=== PATIENT | male | born 1955 | race Two or more races ===

== ENCOUNTER 2021-10-26 15:17 | Observation (INO) ==
[2021-10-26 16:06] LABS: Appearance Urine Clear (Clear); Bilirubin Urine Negative (Negative); Blood Urine Negative (Negative); Color Urine Yellow; Glucose Urine UA Negative (Negative); Ketones Urine Negative (Negative); Leukocyte Esterase Urine Negative (Negative); Nitrite Urine Negative (Negative); Protein Urine Negative (Negative); Specific Gravity Urine 1.005 (1.000-1.030); Urobilinogen Urine Negative (Negative); pH Urine 6.5 (4.5-7.5)
--- NOTE | 2021-10-26 16:18 | Emergency Department Note ---
Impression & Plan Chest pain ADMIT ED Provider Note HPI: The patient is a 66-year-old male with history of coronary artery disease, status post multiple stents, presents the emergency department as a referral from [facility] (where he is staying [facility] for history of alcohol abuse) with a chief complaint of chest pain. Patient states over the past 5 to 6 days he has had multiple episodes of fairly significant substernal chest pain with exertion. He states this happens about 5-6 times a day. Patient does not currently have any symptoms at rest. He states that he has been at the inpatient rehabilitation [facility] since 21 October, states his last alcoholic beverage was on October 20. On arrival here to the ED the patient is noted to be tachycardic, hypertensive, he is saturating well on room air and he is otherwise in no acute distress on my initial evaluation. Patient also mentions that he does have an ulcer on his heel that he was concerned has not been healing appropriately. ROS: -Cardio: Chest -Skin: Heel ulcer *10 point review systems was conducted and is otherwise negative unless stated above *Outpatient medications and allergy history reviewed PE: General: Alert, NAD HEENT: Normocephalic, atraumatic Eyes: Extraocular eye movement is intact, no scleral erythema Pulmonary: Clear to auscultation bilaterally, no wheezing Cardio: Regular rate and rhythm GI: Abdomen is soft, nontender : No suprapubic tenderness MSK: No evidence of trauma or malformation of the extremities, no edema Skin: No evidence of rash, there is an ulceration to the posterior aspect of the left heel with clean base, no surrounding erythema, no crepitus in the surrounding tissue to palpation Neuro: Alert, no focal deficits Psychiatric: Cooperative monitoring analyst: - An order was placed for continuous cardiac monitoring - Patient was noted to be in sinus rhythm with rate of 95 EKG: Rate: 107 Rhythm: Sinus tachycardia Intervals: Within normal limits ST changes: No ST elevation Time: 1605 Medical Decision Making: Patient presented to the emergency department with a chief complaint of chest pain, states he has had these episodes over about the past 5 to 6 days, multiple times per day. Patient states they are exertional in nature. Patient states he also wanted an ulcer on his left heel evaluated, this does not appear to be actively infected on my exam, has a clean base, no surrounding crepitus to palpation, no surrounding erythema or purulence. EG shows sinus tachycardia without any ischemic changes, troponin is negative x1, CT angiography was obtained given the patient's hypertension and chest pain, this does not show any evidence of pulmonary embolism or aortic dissection. There is mention of possible esophagitis. X-ray imaging of the left heel does not show any evidence of subcutaneous gas formation or obvious osteomyelitis. On my reassessment here in the ED the patient is more comfortable appearing, giv en his history of coronary artery disease and multiple stents with complaint of chest pain I do feel that he would benefit from admission to the hospital for serial trending of troponin and possibly cardiology consultation. I discussed the case with the on-call hospitalist [facility], Dr. Sheffield, who admitted the patient to a telemetry bed for further management. Diagnosis: 1. Chest Pain, history of coronary artery disease 2. Hypertension 3. Ulcer to left heel, nonhealing (history of peripheral vascular disease) Disposition: Admission [facility] Spicer, Emergency Medicine Past Med/Surg History Social History Smoking Status: Current every day smoker Preferred Language: Greenlandic Feels Safe at Home: Yes Allergies Allergies Allergy/AdvReac Type Severity Reaction Status Date / Time hydroxyzine AdvReac Intermediate "DOESN'T Verified 10/26/21 18:51 WORK" PER PT. Home Meds Home Medications Medication Instructions Recorded Confirmed amlodipine 5 mg tablet 5 mg PO DAILY 10/26/21 10/26/21 aspirin 81 mg tablet,delayed 81 mg PO DAILY 10/26/21 10/26/21 release atorvastatin 80 mg tablet 80 mg PO HS 10/26/21 10/26/21 bacitracin 500 unit/gram topical 1 applic TOPICAL DAILY 10/26/21 10/26/21 ointment baclofen 5 mg tablet 5 mg PO TID 10/26/21 10/26/21 cilostazol 100 mg tablet 100 mg PO BID 10/26/21 10/26/21 clopidogrel 75 mg tablet (Plavix) 75 mg PO DAILY 10/26/21 10/26/21 cyanocobalamin (vitamin B-12) 1,000 mcg PO DAILY 10/26/21 10/26/21 1,000 mcg tablet (Vitamin B-12) doxycycline monohydrate 100 mg 100 mg PO BID 10/26/21 10/26/21 tablet duloxetine 30 mg capsule,delayed 30 mg PO DAILY 10/26/21 10/26/21 release sprinkle escitalopram oxalate 10 mg tablet 10 mg PO DAILY 10/26/21 10/26/21 (Lexapro) folic acid 1 mg tablet 1 mg PO DAILY 10/26/21 10/26/21 food supplemt, lactose-reduced 1 ea PO BID 10/26/21 10/26/21 (Ensure) gabapentin 800 mg tablet 800 mg PO TID 10/26/21 10/26/21 metformin 500 mg tablet 500 mg PO BID 10/26/21 10/26/21 multivitamin 1 tab PO DAILY 10/26/21 10/26/21 prazosin 1 mg capsule 1 mg PO HS 10/26/21 10/26/21 prazosin 2 mg capsule 2 mg PO HS 10/26/21 10/26/21 quetiapine 200 mg tablet (Seroquel) 200 mg PO HS 10/26/21 10/26/21 quetiapine 25 mg tablet (Seroquel) 25 mg PO BID 10/26/21 10/26/21 thiamine HCl (vitamin B1) 100 mg 100 mg PO DAILY 10/26/21 10/26/21 tablet Results & Data (ED) Vital Signs Vital Signs - 24 hr 10/26/21 15:24 10/26/21 15:31 10/26/21 18:10 Temperature 36.3 C L Temperature Source Temporal Artery Scan Pulse Rate 113 H 115 H Pulse Rate [Apical] 110 H 108 H Pulse Rhythm Regular Pulse Rhythm [Apical] Regular Pulse Strength [Apical] Normal Respiratory Rate 16 20 16 Respiratory Effort / Characteristics Non-Labored Spontaneous Non-Labored Spontaneous Respiratory Depth Normal Normal Respiratory Pattern Regular Regular Blood Pressure 166/79 H Blood Pressure [Right Arm] 178/89 H 178/82 H Blood Pressure Mean 108 Blood Pressure Mean [Right Arm] 118 114 Blood Pressure Position Sitting Blood Pressure Position [Right Arm] Lying Pulse Oximetry 97 95 94 Oxygen Delivery Method Room Air Room Air Room Air Oxygen Flow Rate 0 Sepsis Recent Fever Within 48 Hours No Sepsis New/Unexplained Change in Mental Status No Sepsis Action Taken by Nursing No Action Required 10/26/21 20:38 Temperature Temperature Source Pulse Rate Pulse Rate [Apical] 104 H Pulse Rhythm Pulse Rhythm [Apical] Pulse Strength [Apical] Respiratory Rate 18 Respiratory Effort / Characteristics Respiratory Depth Respiratory Pattern Blood Pressure Blood Pressure [Right Arm] Blood Pressure Mean Blood Pressure Mean [Right Arm] Blood Pressure Position Blood Pressure Position [Right Arm] Pulse Oximetry 95 Oxygen Delivery Method Room Air Oxygen Flow Rate Sepsis Recent Fever Within 48 Hours Sepsis New/Unexplained Change in Mental Status Sepsis Action Taken by Nursing Laboratory Data Result diagrams: 10/26/21 15:40 10/26/21 17:17 Lab Results 10/26/21 10/26/21 10/26/21 Range/Units 15:40 15:40 15:40 WBC 9.96 (4.8-10.8) K/ul RBC 4.62 L (4.63-6.08) M/uL Hgb 10.2 L (14.0-18.0) g/dl Hct 33.7 L (40.1-51.0) % MCV 72.9 L (80.0-100.0) fL MCH 22.1 L (25.0-34.0) pg MCHC 30.3 L (32.0-36.0) g/dL RDW Std Deviation 58.5 H (36.4-46.3) fL RDW Coeff of Mini 23.1 H (11.5-14.5) % Plt Count 392 (130-400) K/uL MPV 9.1 L (9.4-12.4) fL Immature Gran % (Auto) 0.7 % Neut % (Auto) 63.1 % Lymph % (Auto) 24.0 % [place] % (Auto) 7.9 % Eos % (Auto) 3.2 % Baso % (Auto) 1.1 % Reticulocyte % (Auto) (0.5-2.0) % Neut # (Auto) 6.28 (1.4-6.5) K/uL Lymph # (Auto) 2.39 (1.2-3.4) K/uL [place] # (Auto) 0.79 (0.24-0.82) K/uL Eos # (Auto) 0.32 (0-0.50) K/uL Baso # (Auto) 0.11 (0-0.2) K/uL Reticulocyte # (0.02-0.10) 10^6/uL Immature Gran # (Auto) 0.07 H (0.00-0.02) K/uL Anisocytosis Present Schistocytes Occasional PT 10.2 (9.0-12.0) Seconds INR 1.0 (0.9-1.1) APTT 24.3 (21.0-31.0) Seconds PTT Ratio 0.9 Sodium 135 L (136-145) mmol/L Potassium TNP Chloride 101 (98-107) mmol/L Carbon Dioxide 25 (21-32) mmol/L Anion Gap 9 (3-11) BUN 7 (6-23) mg/dl Creatinine 0.61 (0.6-1.4) mg/dl Est Cr Clr Drug Dosing 108.9 ml/min Est GFR ( Amer) 121.5 ml/min Est GFR (Non-Af Amer) 104.8 ml/min BUN/Creatinine Ratio 11.5 (10-20) Glucose 150 H (70-99(Fasting)) mg/dl Calcium 9.9 (8.5-10.1) mg/dl Magnesium 1.7 (1.7-2.4) mg/dl Iron (35-175) mcg/dl Transferrin (200-360) mg/dl Ferritin (8-388) ng/ml Total Bilirubin 0.6 (0.2-1.0) mg/dl AST TNP ALT 15 (7-52) U/L Alkaline Phosphatase 83 (34-104) U/L Troponin I High Sens (0-20) pg/ml Total Protein 8.0 (6.0-8.3) gm/dl Albumin 4.3 (3.4-5.0) gm/dl Globulin 3.7 (2.5-4.0) gm/dl Albumin/Globulin Ratio 1.2 (0.9-2) Vitamin B12 (180-914) pg/ml Folate (>5.38) ng/ml TSH (0.300-4.500) uIu/ml Urine Color Urine Appearance (Clear) Urine pH (4.5-7.5) Ur Specific [place] (1.000-1.030) Urine Protein (Negative) Urine Glucose (UA) (Negative) Urine Ketones (Negative) Urine Blood (Negative) Urine Nitrite (Negative) Urine Bilirubin (Negative) Urine Urobilinogen (Negative) Ur Leukocyte Esterase (Negative) SARS-CoV-2, RNA, NAAT (NEGATIVE) 10/26/21 10/26/21 10/26/21 Range/Units 15:40 15:40 15:40 WBC (4.8-10.8) K/ul RBC (4.63-6.08) M/uL Hgb (14.0-18.0) g/dl Hct (40.1-51.0) % MCV (80.0-100.0) fL MCH (25.0-34.0) pg MCHC (32.0-36.0) g/dL RDW Std Deviation (36.4-46.3) fL RDW Coeff of Mini (11.5-14.5) % Plt Count (130-400) K/uL MPV (9.4-12.4) fL Immature Gran % (Auto) % Neut % (Auto) % Lymph % (Auto) % [place] % (Auto) % Eos % (Auto) % Baso % (Auto) % Reticulocyte % (Auto) (0.5-2.0) % Neut # (Auto) (1.4-6.5) K/uL Lymph # (Auto) (1.2-3.4) K/uL [place] # (Auto) (0.24-0.82) K/uL Eos # (Auto) (0-0.50) K/uL Baso # (Auto) (0-0.2) K/uL Reticulocyte # (0.02-0.10) 10^6/uL Immature Gran # (Auto) (0.00-0.02) K/uL Anisocytosis Schistocytes PT (9.0-12.0) Seconds INR (0.9-1.1) APTT (21.0-31.0) Seconds PTT Ratio Sodium (136-145) mmol/L Potassium Chloride (98-107) mmol/L Carbon Dioxide (21-32) mmol/L Anion Gap (3-11) BUN (6-23) mg/dl Creatinine (0.6-1.4) mg/dl Est Cr Clr Drug Dosing ml/min Est GFR ( Amer) ml/min Est GFR (Non-Af Amer) ml/min BUN/Creatinine Ratio (10-20) Glucose (70-99(Fasting)) mg/dl Calcium (8.5-10.1) mg/dl Magnesium (1.7-2.4) mg/dl Iron (35-175) mcg/dl Transferrin (200-360) mg/dl Ferritin (8-388) ng/ml Total Bilirubin (0.2-1.0) mg/dl AST ALT (7-52) U/L Alkaline Phosphatase (34-104) U/L Troponin I High Sens 7.3 (0-20) pg/ml Total Protein (6.0-8.3) gm/dl Albumin (3.4-5.0) gm/dl Globulin (2.5-4.0) gm/dl Albumin/Globulin Ratio (0.9-2) Vitamin B12 (180-914) pg/ml Folate (>5.38) ng/ml TSH 1.080 (0.300-4.500) uIu/ml Urine Color Yellow Urine Appearance Clear (Clear) Urine pH 6.5 (4.5-7.5) Ur Specific [place] 1.005 (1.000-1.030) Urine Protein Negative (Negative) Urine Glucose (UA) Negative (Negative) Urine Ketones Negative (Negative) Urine Blood Negative (Negative) Urine Nitrite Negative (Negative) Urine Bilirubin Negative (Negative) Urine Urobilinogen Negative (Negative) Ur Leukocyte Esterase Negative (Negative) SARS-CoV-2, RNA, NAAT (NEGATIVE) 10/26/21 10/26/21 10/26/21 Range/Units 17:17 17:17 17:19 WBC (4.8-10.8) K/ul RBC (4.63-6.08) M/uL Hgb (14.0-18.0) g/dl Hct (40.1-51.0) % MCV (80.0-100.0) fL MCH (25.0-34.0) pg MCHC (32.0-36.0) g/dL RDW Std Deviation (36.4-46.3) fL RDW Coeff of Mini (11.5-14.5) % Plt Count (130-400) K/uL MPV (9.4-12.4) fL Immature Gran % (Auto) % Neut % (Auto) % Lymph % (Auto) % [place] % (Auto) % Eos % (Auto) % Baso % (Auto) % Reticulocyte % (Auto) (0.5-2.0) % Neut # (Auto) (1.4-6.5) K/uL Lymph # (Auto) (1.2-3.4) K/uL [place] # (Auto) (0.24-0.82) K/uL Eos # (Auto) (0-0.50) K/uL Baso # (Auto) (0-0.2) K/uL Reticulocyte # (0.02-0.10) 10^6/uL Immature Gran # (Auto) (0.00-0.02) K/uL Anisocytosis Schistocytes PT (9.0-12.0) Seconds INR (0.9-1.1) APTT (21.0-31.0) Seconds PTT Ratio Sodium (136-145) mmol/L Potassium 3.5 Chloride (98-107) mmol/L Carbon Dioxide (21-32) mmol/L Anion Gap (3-11) BUN (6-23) mg/dl Creatinine (0.6-1.4) mg/dl Est Cr Clr Drug Dosing ml/min Est GFR ( Amer) ml/min Est GFR (Non-Af Amer) ml/min BUN/Creatinine Ratio (10-20) Glucose (70-99(Fasting)) mg/dl Calcium (8.5-10.1) mg/dl Magnesium (1.7-2.4) mg/dl Iron 17 L (35-175) mcg/dl Transferrin 343 (200-360) mg/dl Ferritin 12.1 (8-388) ng/ml Total Bilirubin (0.2-1.0) mg/dl AST 15 ALT (7-52) U/L Alkaline Phosphatase (34-104) U/L Troponin I High Sens 9.4 (0-20) pg/ml Total Protein (6.0-8.3) gm/dl Albumin (3.4-5.0) gm/dl Globulin (2.5-4.0) gm/dl Albumin/Globulin Ratio (0.9-2) Vitamin B12 1015 H (180-914) pg/ml Folate > 22.30 (>5.38) ng/ml TSH (0.300-4.500) uIu/ml Urine Color Urine Appearance (Clear) Urine pH (4.5-7.5) Ur Specific [place] (1.000-1.030) Urine Protein (Negative) Urine Glucose (UA) (Negative) Urine Ketones (Negative) Urine Blood (Negative) Urine Nitrite (Negative) Urine Bilirubin (Negative) Urine Urobilinogen (Negative) Ur Leukocyte Esterase (Negative) SARS-CoV-2, RNA, NAAT (NEGATIVE) 10/26/21 10/26/21 10/26/21 Range/Units 19:24 22:24 22:24 WBC (4.8-10.8) K/ul RBC (4.63-6.08) M/uL Hgb (14.0-18.0) g/dl Hct (40.1-51.0) % MCV (80.0-100.0) fL MCH (25.0-34.0) pg MCHC (32.0-36.0) g/dL RDW Std Deviation (36.4-46.3) fL RDW Coeff of Mini (11.5-14.5) % Plt Count (130-400) K/uL MPV (9.4-12.4) fL Immature Gran % (Auto) % Neut % (Auto) % Lymph % (Auto) % [place] % (Auto) % Eos % (Auto) % Baso % (Auto) % Reticulocyte % (Auto) 1.0 (0.5-2.0) % Neut # (Auto) (1.4-6.5) K/uL Lymph # (Auto) (1.2-3.4) K/uL [place] # (Auto) (0.24-0.82) K/uL Eos # (Auto) (0-0.50) K/uL Baso # (Auto) (0-0.2) K/uL Reticulocyte # 0.05 (0.02-0.10) 10^6/uL Immature Gran # (Auto) (0.00-0.02) K/uL Anisocytosis Schistocytes PT (9.0-12.0) Seconds INR (0.9-1.1) APTT (21.0-31.0) Seconds PTT Ratio Sodium (136-145) mmol/L Potassium Chloride (98-107) mmol/L Carbon Dioxide (21-32) mmol/L Anion Gap (3-11) BUN (6-23) mg/dl Creatinine (0.6-1.4) mg/dl Est Cr Clr Drug Dosing ml/min Est GFR ( Amer) ml/min Est GFR (Non-Af Amer) ml/min BUN/Creatinine Ratio (10-20) Glucose (70-99(Fasting)) mg/dl Calcium (8.5-10.1) mg/dl Magnesium (1.7-2.4) mg/dl Iron (35-175) mcg/dl Transferrin (200-360) mg/dl Ferritin (8-388) ng/ml Total Bilirubin (0.2-1.0) mg/dl AST ALT (7-52) U/L Alkaline Phosphatase (34-104) U/L Troponin I High Sens 10.2 (0-20) pg/ml Total Protein (6.0-8.3) gm/dl Albumin (3.4-5.0) gm/dl Globulin (2.5-4.0) gm/dl Albumin/Globulin Ratio (0.9-2) Vitamin B12 (180-914) pg/ml Folate (>5.38) ng/ml TSH (0.300-4.500) uIu/ml Urine Color Urine Appearance (Clear) Urine pH (4.5-7.5) Ur Specific [place] (1.000-1.030) Urine Protein (Negative) Urine Glucose (UA) (Negative) Urine Ketones (Negative) Urine Blood (Negative) Urine Nitrite (Negative) Urine Bilirubin (Negative) Urine Urobilinogen (Negative) Ur Leukocyte Esterase (Negative) SARS-CoV-2, RNA, NAAT NEGATIVE (NEGATIVE) Administered Medications Discontinued Medications Clonidine HCl (Clonidine Hcl 0.1 Mg Tab) 0.1 mg PO NOW ONE Stop: 10/26/21 21:26 Last Admin: 10/26/21 21:50 Dose: 0.1 mg Documented by: [id number] Sodium Chloride (Nss 1000ml) 1,000 mls @ 999 mls/hr IV .Q1H1M ONE Stop: 10/26/21 17:19 Last Infusion: 10/26/21 19:10 Dose: 0 mls/hr Documented by: [id number] Admin: 10/26/21 18:03 Dose: 999 mls/hr Documented by: [id number] Magnesium Sulfate/Dextrose (Magnesium Sulfate / D5w) 1 gm in 100 mls @ 50 mls/hr IV ONE ONE Stop: 10/26/21 23:25 Last Admin: 10/26/21 21:50 Dose: 50 mls/hr Documented by: [id number] Ioversol (Optiray 320 125ml) 121 ml IV ONCE ONE Stop: 10/26/21 18:21 Last Admin: 10/26/21 18:22 Dose: 121 ml Documented by: [id number] Lorazepam (Lorazepam 2 Mg/1 Ml Vial) 1 mg IV NOW STA; Protocol Stop: 10/26/21 17:22 Last Admin: 10/26/21 18:06 Dose: 1 mg Documented by: [id number] Morphine Sulfate (Morphine Sulfate 4 Mg/Ml 1 Ml Carp\\Vial) 4 mg IV NOW STA Stop: 10/26/21 16:20 Last Admin: 10/26/21 18:03 Dose: 4 mg Documented by: [id number] Potassium Chloride (Potassium Chloride Crtab 20 Meq Tabcr) 40 meq PO NOW STA Stop: 10/26/21 21:27 Last Admin: 10/26/21 21:50 Dose: 40 meq Documented by: [id number] Imaging Data Radiologist's Impression: Chest X-Ray 10/26/21 15:29 TWO VIEW CHEST CLINICAL HISTORY: Atypical chest pain. FINDINGS: PA and lateral chest radiographs are correlated with chest CT performed the same day 10/26/2021. The heart is enlarged. The pulmonary vasculature is noncongested. The coronary artery stent is suspected. A telectasis is noted at the lung bases. Right middle lobe atelectasis appears increased from today's CT scan. No pleural effusion or pneumothorax is seen. The skeletal structures are osteopenic. There are healed bilateral rib fractures. IMPRESSION: 1. Cardiomegaly without radiographic evidence of congestive failure. 2. Atelectasis is noted at the lung bases. Right middle lobe atelectasis appears increased from today's earlier CT scan. ACT 112: Negative or not required by law. Electronically signed by: Shayne Levin M.D. 10/26/2021 7:42 PM Foot X-Ray 10/26/21 15:29 RIGHT FOOT 3 VIEWS CLINICAL HISTORY: Right foot ulceration. FINDINGS: 3 views of the right foot are obtained. No prior studies are available for comparison at the time of dictation. The skeletal structures are osteopenic. No fracture is seen. There is no bony erosion or periostitis. Mild osteoarthritic change is seen at the first metatarsophalangeal joint. There is mild subluxation at the fourth proximal interphalangeal joint. Soft tissue edema overlies the heel. Ulceration is suggested dorsal to the calcaneus. No soft ti ssue gas is seen. An ankle monitor is in place. IMPRESSION: 1. No acute bony abnormality is identified. 2. Soft tissue edema overlies the heel and a cutaneous ulceration is suggested dorsal to the calcaneus. Electronically signed by: Shayne Levin M.D. 10/26/2021 7:58 PM Chest CTA 10/26/21 16:19 CT ANGIOGRAM OF THE CHEST CLINICAL HISTORY: Atypical chest pain. COMPARISON STUDY: No priors. TECHNIQUE: Following the IV administration of 121 cc of Optiray 320, CT angiogram of the chest was performed from the upper abdomen to the thoracic inlet utilizing the pulmonary embolus protocol. Images are reviewed in the axial, sagittal, and coronal planes. 3-D MIPS images are created and assessed. IV contrast was administered without complication. A dose lowering technique was utilized adhering to the principles of ALARA. The examination is degraded by motion artifact. CT DOSE: 423.06 mGy.cm FINDINGS: Thyroid: Imaged portions of the thyroid gland are normal in size and attenuation. Thoracic aorta: There is atherosclerotic calcification of the thoracic aorta. There is mild and minimal dilatation of the ascending thoracic aorta which measures up to 4.0 cm in diameter. The remainder of the thoracic aorta is normal in caliber, and the arch demonstrates standard 3-vessel anatomy. No dissection is seen. Pulmonary vasculature: The pulmonary trunk is normal in caliber. There are no filling defects identified in main, lobar, or proximal segmental pulmonary branches to suggest pulmonary embolus. Evaluation of the segmental and subsegmental vessels is significantly degraded by motion artifact, particularly in the lower lobes. Heart: The heart is enlarged and noting trace pericardial effusion. The coronary arteries are densely calcified. Lungs and pleural spaces: Evaluation of the lung parenchyma is compromised by motion artifact. Secretions are noted in the trachea. Dependent atelectasis is seen at the lung bases. There is no airspace consolidation typical for pneumonia or pleural effusion. Mediastinum: Esophageal wall appears diffusely thickened. There is no mediastinal lymphadenopathy. Leah: Clear. Axillae: There is no axillary lymphadenopathy. Upper abdomen: There is a small hiatal hernia. Partially visualized upper abdominal viscera is otherwise within normal limits. Skeletal structures: The skeletal structures are osteopenic. Spondylotic changes noted in the spine. No lytic or blastic bony lesions are seen. There are chronic/healed bilateral rib fractures. IMPRESSION: 1. Motion compromised examination. 2. There is no evidence of central pulmonary embolus in the main, lobar, or proximal segmental pulmonary arteries. The segmental and subsegmental vessels are not well evaluated. 3. Cardiomegaly. 4. There is no airspace consolidation or pleural effusion. 5. Esophageal wall appears diffusely thickened. Correlate clinically for evidence of esophagitis. This could be further assessed with endoscopy if clinically warranted. 6. There is mild aneurysmal dilatation of the ascending thoracic aorta which measures up to 4.0 cm in diameter. 7. Additional findings as above. ACT 112: Negative or not required by law. Electronically signed by: Shayne Levin M.D. 10/26/2021 6:59 PM Discharge Plan Visit Data Chief Complaint: Chest Pain Stated Complaint: RT HEAL ULCERATION ED Provider: Collin Spicer Discharge Problem: Chest pain Patient Disposition: Admitted As Inpatient Discharge Instructions Interventions: ED Discharge Assessment Last Done: 10/26/21 22:51 Discharge Problem: Chest pain Qualifiers: Chest pain type: unspecified Qualified Code(s): R07.9 - Chest pain, unspecified
[2021-10-26] MEDS ORDERED: MoRPHine SULFATE 4 MG/ML 1 ML CARP\\VIAL IV STA (16:19)
[2021-10-26] MEDS ORDERED: SODIUM CHLORIDE 0.9% 1000ML 1,000 ML IV ONE (16:19)
[2021-10-26 16:20] LABS: Partial Thromboplastin Ratio 0.9; Partial Thromboplastin Time 24.3 Seconds (21.0-31.0); Prothrombin Time 10.2 Seconds (9.0-12.0)
[2021-10-26 16:22] LABS: Basophils # (auto) 0.11 K/uL (0-0.2); Basophils % (auto) 1.1 %; Eosinophils # (auto) 0.32 K/uL (0-0.50); Eosinophils % (auto) 3.2 %; Hematocrit (blood only) 33.7 % (40.1-51.0); Hemoglobin 10.2 g/dl (14.0-18.0); Immature Granulocytes # (auto) 0.07 K/uL (0.00-0.02); Immature Granulocytes % (auto) 0.7 %; Lymphocytes # (auto) 2.39 K/uL (1.2-3.4); Mean Corpuscular Hemoglobin 22.1 pg (25.0-34.0); Mean Corpuscular Hgb Conc 30.3 g/dL (32.0-36.0); Mean Corpuscular Volume 72.9 fL (80.0-100.0); Mean Platelet Volume 9.1 fL (9.4-12.4); Monocytes # (auto) 0.79 K/uL (0.24-0.82); Monocytes % (auto) 7.9 %; Neutrophils # (auto) 6.28 K/uL (1.4-6.5); Neutrophils % (auto) 63.1 %; Platelet Count 392 K/uL (130-400); RDW Coefficient of Variation 23.1 % (11.5-14.5); RDW Standard Deviation 58.5 fL (36.4-46.3); Red Blood Count 4.62 M/uL (4.63-6.08); White Blood Count 9.96 K/ul (4.8-10.8)
[2021-10-26 16:53] LABS: Alanine Aminotransferase 15 U/L (7-52); Albumin Globulin Ratio 1.2 (0.9-2); Albumin Level 4.3 gm/dl (3.4-5.0); Alkaline Phosphatase 83 U/L (34-104); Anion Gap 9 (3-11); BUN Creatinine Ratio 11.5 (10-20); Bilirubin,Total 0.6 mg/dl (0.2-1.0); Blood Urea Nitrogen 7 mg/dl (6-23); Calcium 9.9 mg/dl (8.5-10.1); Carbon Dioxide 25 mmol/L (21-32); Chloride 101 mmol/L (98-107); Creatinine Clr Calc Pharmacy 108.9 ml/min; Est GFR (African American) 121.5 ml/min; Est GFR (Non-African American) 104.8 ml/min; Globulin 3.7 gm/dl (2.5-4.0); Glucose 150 mg/dl (70-99(Fasting)); Magnesium 1.7 mg/dl (1.7-2.4); Sodium 135 mmol/L (136-145)
[2021-10-26 17:13] LABS: Schistocytes Occasional
[2021-10-26 17:14] LABS: Anisocytosis Present
[2021-10-26] MEDS ORDERED: LORazepam 2 MG/1 ML VIAL IV STA (17:21)
[2021-10-26 18:11] LABS: Potassium 3.5 mmol/L (3.5-5.1)
[2021-10-26] MEDS ORDERED: OPTIRAY 320 125ml IV ONE (18:20)
--- NOTE | 2021-10-26 19:01 | CT Scan Report ---
CT ANGIOGRAM OF THE CHEST CLINICAL HISTORY: Atypical chest pain. COMPARISON STUDY: No priors. TECHNIQUE: Following the IV administration of 121 cc of Optiray 320, CT angiogram of the chest was pe rformed from the upper abdomen to the thoracic inlet utilizing the pulmonary embolus protocol. Images are reviewed in the axial, sagittal, and coronal planes. 3-D MIPS images are created and assessed. I V contrast was administered without complication. A dose lowering technique was utilized adhering to the principles of ALARA. The examination is degraded by motion artifact. CT DOSE: 423.06 mGy.cm FINDINGS: Thyroid: Imaged portions of the thyroid gland are normal in size and attenuation. Thoracic aorta: There is atherosclerotic calcification of the thoracic aorta. There is mild and minim al dilatation of the ascending thoracic aorta which measures up to 4.0 cm in diameter. The remainder of the thoracic aorta is normal in caliber, and the arch demonstrates standard 3-vessel anatomy. No d issection is seen. Pulmonary vasculature: The pulmonary trunk is normal in caliber. There are no filling defects identif ied in main, lobar, or proximal segmental pulmonary branches to suggest pulmonary embolus. Evaluation of the segmental and subsegmental vessels is significantly degraded by motion artifact, particularly in the lower lobes. Heart: The heart is enlarged and noting trace pericardial effusion. The coronary arteries are densely calcified. Lungs and pleural spaces: Evaluation of the lung parenchyma is compromised by motion artifact. Secret ions are noted in the trachea. Dependent atelectasis is seen at the lung bases. There is no airspace consolidation typical for pneumonia or pleural effusion. Mediastinum: Esophageal wall appears diffusely thickened. There is no mediastinal lymphadenopathy. Leah: Clear. Axillae: There is no axillary lymphadenopathy. Upper abdomen: There is a small hiatal hernia. Partially visualized upper abdominal viscera is otherw ise within normal limits. Skeletal structures: The skeletal structures are osteopenic. Spondylotic changes noted in the spine. No lytic or blastic bony lesions are seen. There are chronic/healed bilateral rib fractures. IMPRESSION: 1. Motion compromised examination. 2. There is no evidence of central pulmonary embolus in the main, lobar, or proximal segmental pulmon carlitos arteries. The segmental and subsegmental vessels are not well evaluated. 3. Cardiomegaly. 4. There is no airspace consolidation or pleural effusion. 5. Esophageal wall appears diffusely thickened. Correlate clinically for evidence of esophagitis. Thi s could be further assessed with endoscopy if clinically warranted. 6. There is mild aneurysmal dilatation of the ascending thoracic aorta which measures up to 4.0 cm in diameter. 7. Additional findings as above. ACT 112: Negative or not required by law. Electronically signed by: Shayne Levin M.D. 10/26/2021 6:59 PM
--- NOTE | 2021-10-26 19:45 | XRay Report ---
TWO VIEW CHEST CLINICAL HISTORY: Atypical chest pain. FINDINGS: PA and lateral chest radiographs are correlated with chest CT performed the same day 022. The heart is enlarged. The pulmonary vasculature is noncongested. The coronary artery stent is suspected. Atelectasis is noted at the lung bases. Right middle lobe atelectasis appears increased fr om today's CT scan. No pleural effusion or pneumothorax is seen. The skeletal structures are osteopen ic. There are healed bilateral rib fractures. IMPRESSION: 1. Cardiomegaly without radiographic evidence of congestive failure. 2. Atelectasis is noted at the lung bases. Right middle lobe atelectasis appears increased from today 's earlier CT scan. ACT 112: Negative or not required by law. Electronically signed by: Shayne Levin M.D. 10/26/2021 7:42 PM
--- NOTE | 2021-10-26 19:59 | XRay Report ---
RIGHT FOOT 3 VIEWS CLINICAL HISTORY: Right foot ulceration. FINDINGS: 3 views of the right foot are obtained. No prior studies are available for comparison at th e time of dictation. The skeletal structures are osteopenic. No fracture is seen. There is no bony er osion or periostitis. Mild osteoarthritic change is seen at the first metatarsophalangeal joint. Ther e is mild subluxation at the fourth proximal interphalangeal joint. Soft tissue edema overlies the he el. Ulceration is suggested dorsal to the calcaneus. No soft tissue gas is seen. An ankle monitor is in place. IMPRESSION: 1. No acute bony abnormality is identified. 2. Soft tissue edema overlies the heel and a cutaneous ulceration is suggested dorsal to the calcaneu s. Electronically signed by: Shayne Levin M.D. 10/26/2021 7:58 PM
[2021-10-26] MEDS ORDERED: cloNIDine HCL 0.1 MG TAB PO ONE (21:25)
[2021-10-26] MEDS ORDERED: POTASSIUM CHLORIDE CRTAB 20 MEQ TABCR PO STA (21:26)
[2021-10-26] MEDS ORDERED: MAGNESIUM SULFATE / D5W 1 GM/100 ML BAG IV ONE (21:26)
--- NOTE | 2021-10-26 22:24 | History & Physical Report ---
Date of Service October 26, 2021 Assessment & Plan (1) Chest pain: Plan: Possibly from uncontrolled hypertension secondary to alcohol withdrawal Rule out ACS, hx CAD status post stent (recent stent placed 2014) Right heel wound of 2 months duration Improving on recent doxycycline Rx, no sepsis for now hx PVD Rule out osteomyelitis hyperlipidemia, on statin Rx DM2 on oral medications, unknown baseline control mood disorder, at baseline Anemia, unknown duration, patient unaware of prior diagnosis, FOBT negative ongoing tobacco/alcohol abuse OBS PCU Titrate home BP meds Add beta-juani to regimen if still uncontrolled (Patient recalls being on beta-blockers in the past but does not recall why it was stopped.) ALISON S, DT precautions Aspirin and statin for secondary CAD prevention Follow troponin TTE, Cardiology consult Re: Chest pain, history CAD N.p.o. after midnight until patient seen by Cardiology in anticipation of procedure Continue doxycycline for right heel wound Follow official CT right foot result, may need MRI to definitively rule out oste omyelitis May benefit from podiatry evaluation Anemia work-up, transfuse PRBC if hemoglobin less than 8 and for symptomatic anemia Basal insulin adjusted for n.p.o. status, ISS BG goal 1 10-1 40, check hemoglobin A1c Retrieve recent records/labs from PCP's office. Nicotine patch. DVT prophylaxis. Lovenox subcu Full code Text document was generated using [employer] voice recognition software. It may contain grammatical or spelling errors. Kindly contact undersigned for clarification of any documentation item in question. History of Present Illness Chief Complaint: Chest pain, Left foot wound issue Primary Care Provider: Dr. Narvaez of [place], [place] History obtained from patient and records. Medical history significant for CAD status post stent (recent stent placed 2014), PVD, hypertension, hyperlipidemia, DM2 on oral medications, mood disorder, chronic left heel wound on doxycycline Rx, ongoing tobacco/alcohol abuse. Patient is a resident of [place], [place] who arrived at the the local [facility] rehab facility for voluntary alcohol rehab/detox 6 days ago. Last drink was 6 days ago. 2 months ago, patient noted a wound on his right heel. Patient started on Doxycycline course last week by family doctor before leaving [place]. X-ray recommended as per patient to make sure infection has not spread to the bone. Some improvement of right heel wound with doxycycline prescription. On and off left-sided chest discomfort going to the jaw and arm the last 3 years, lasting minutes to hours. Somewhat worsened on exertion. Patient has not had a follow-up with a director instrumentation in the last 3 years. Last 3 days, patient noted worsening of chest discomfort symptoms with some shortness of breath, diaphoresis. Patient compliant with home medications. Blood pressure readings different every time depending on what he eats as per patient. Patient denies headache, belly pain, black/bloody stools. Patient sent to the ER for evaluation of chest pain and right heel wound. Patient currently comfortable at the ER. 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 Home Medications Medication Instructions Recorded Confirmed Type amlodipine 5 mg tablet 5 mg PO DAILY 10/26/21 10/26/21 History aspirin 81 mg tablet,delayed 81 mg PO DAILY 10/26/21 10/26/21 History release atorvastatin 80 mg tablet 80 mg PO HS 10/26/21 10/26/21 History bacitracin 500 unit/gram topical 1 applic TOPICAL DAILY 10/26/21 10/26/21 History ointment baclofen 5 mg tablet 5 mg PO TID 10/26/21 10/26/21 History cilostazol 100 mg tablet 100 mg PO BID 10/26/21 10/26/21 History clopidogrel 75 mg tablet (Plavix) 75 mg PO DAILY 10/26/21 10/26/21 History cyanocobalamin (vitamin B-12) 1,000 mcg PO DAILY 10/26/21 10/26/21 History 1,000 mcg tablet (Vitamin B-12) doxycycline monohydrate 100 mg 100 mg PO BID 10/26/21 10/26/21 History tablet duloxetine 30 mg capsule,delayed 30 mg PO DAILY 10/26/21 10/26/21 History release sprinkle escitalopram oxalate 10 mg tablet 10 mg PO DAILY 10/26/21 10/26/21 History (Lexapro) folic acid 1 mg tablet 1 mg PO DAILY 10/26/21 10/26/21 History food supplemt, lactose-reduced 1 ea PO BID 10/26/21 10/26/21 History (Ensure) gabapentin 800 mg tablet 800 mg PO TID 10/26/21 10/26/21 History metformin 500 mg tablet 500 mg PO BID 10/26/21 10/26/21 History multivitamin 1 tab PO DAILY 10/26/21 10/26/21 History prazosin 1 mg capsule 1 mg PO HS 10/26/21 10/26/21 History prazosin 2 mg capsule 2 mg PO HS 10/26/21 10/26/21 History quetiapine 200 mg tablet (Seroquel) 200 mg PO HS 10/26/21 10/26/21 History quetiapine 25 mg tablet (Seroquel) 25 mg PO BID 10/26/21 10/26/21 History thiamine HCl (vitamin B1) 100 mg 100 mg PO DAILY 10/26/21 10/26/21 History tablet Past Med/Surg History Social History Smoking Status: Current some day smoker Second Hand Exposure: No; Do You Dip or Chew Tobacco: No; Tobacco Cessation Education Requested by Patient: No Hx Alcohol Use: Yes Alcohol type: beer Hx Substance Use: No Preferred Language: Monegasque Communication Ability: Effective 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 Beliefs That Will Affect Care: None Current Living Situation: Alone Current Living Situation Comment: Pt is from [place] and is currently at [facility] Other Information That Helps Us Care for You: No Feels Safe at Home: Yes Safety Concerns: Feels Safe At This Time Assistive Devices: Cane, Glasses and Hearing Aid - Left Review of Systems Review of Systems: As per HPI, all other systems reviewed and negative Physical Exam Physical Exam: GENERAL: Comfortable, pleasant, no respiratory distress SKIN: Pallor , warm HEENT: Alopecia, pale palpebral conjunctivae, no ptosis, mosit buccal mucosa NECK : Supple, no tenderness CHEST : CTA, no tenderness HEART : Tachycardic, no obvious murmurs ABDOMEN: Some distention, nontender RECTAL : Intact sphincter, yellow stool (FOBT negative) EXTREMITIES : Ulcerated wound, right heel, no LE swelling/tenderness, no other conspicuous deformities noted NEUROLOGIC : Coherent, no facial asymmetry, no other gross focality Results & Data Results & Data ([facility]) Vital Signs (Past 12 Hours) Vital Signs Temp Pulse Pulse Resp BP BP Pulse Ox 10/26/21 20:38 104 H 18 95 10/26/21 18:10 108 H 16 178/82 H 94 07/11/22 15:31 115 H 110 H 20 178/89 H 95 10/26/21 15:24 36.3 C L 113 H 16 166/79 H 97 Laboratory Results Laboratory Results WBC 9.96 K/ul (4.8-10.8) 10/26/21 15:40 RBC 4.62 M/uL (4.63-6.08) L 10/26/21 15:40 Hgb 10.2 g/dl (14.0-18.0) L 10/26/21 15:40 Hct 33.7 % (40.1-51.0) L 10/26/21 15:40 MCV 72.9 fL (80.0-100.0) L 10/26/21 15:40 MCH 22.1 pg (25.0-34.0) L 10/26/21 15:40 MCHC 30.3 g/dL (32.0-36.0) L 10/26/21 15:40 RDW Std Deviation 58.5 fL (36.4-46.3) H 10/26/21 15:40 RDW Coeff of Mini 23.1 % (11.5-14.5) H 10/26/21 15:40 Plt Count 392 K/uL (130-400) 10/26/21 15:40 MPV 9.1 fL (9.4-12.4) L 10/26/21 15:40 Immature Gran % (Auto) 0.7 % 10/26/21 15:40 Neut % (Auto) 63.1 % 10/26/21 15:40 Lymph % (Auto) 24.0 % 10/26/21 15:40 [place] % (Auto) 7.9 % 10/26/21 15:40 Eos % (Auto) 3.2 % 10/26/21 15:40 Baso % (Auto) 1.1 % 10/26/21 15:40 Neut # (Auto) 6.28 K/uL (1.4-6.5) 10/26/21 15:40 Lymph # (Auto) 2.39 K/uL (1.2-3.4) 10/26/21 15:40 [place] # (Auto) 0.79 K/uL (0.24-0.82) 10/26/21 15:40 Eos # (Auto) 0.32 K/uL (0-0.50) 10/26/21 15:40 Baso # (Auto) 0.11 K/uL (0-0.2) 10/26/21 15:40 Immature Gran # (Auto) 0.07 K/uL (0.00-0.02) H 10/26/21 15:40 Anisocytosis Present 10/26/21 15:40 Schistocytes Occasional 10/26/21 15:40 PT 10.2 Seconds (9.0-12.0) 10/26/21 15:40 INR 1.0 (0.9-1.1) 10/26/21 15:40 APTT 24.3 Seconds (21.0-31.0) 10/26/21 15:40 PTT Ratio 0.9 10/26/21 15:40 Sodium 135 mmol/L (136-145) L 10/26/21 15:40 Potassium 3.5 mmol/L (3.5-5.1) 10/26/21 17:17 Chloride 101 mmol/L (98-107) 10/26/21 15:40 Carbon Dioxide 25 mmol/L (21-32) 10/26/21 15:40 Anion Gap 9 (3-11) 10/26/21 15:40 BUN 7 mg/dl (6-23) 10/26/21 15:40 Creatinine 0.61 mg/dl (0.6-1.4) 10/26/21 15:40 Est Cr Clr Drug Dosing 108.9 ml/min 10/26/21 15:40 Est GFR ( Amer) 121.5 ml/min 10/26/21 15:40 Est GFR (Non-Af Amer) 104.8 ml/min 10/26/21 15:40 BUN/Creatinine Ratio 11.5 (10-20) 10/26/21 15:40 Glucose 150 mg/dl (70-99(Fasting)) H 10/26/21 15:40 Calcium 9.9 mg/dl (8.5-10.1) 10/26/21 15:40 Magnesium 1.7 mg/dl (1.7-2.4) 10/26/21 15:40 Total Bilirubin 0.6 mg/dl (0.2-1.0) 10/26/21 15:40 AST 15 U/L (13-39) 10/26/21 17:17 ALT 15 U/L (7-52) 10/26/21 15:40 Alkaline Phosphatase 83 U/L (34-104) 10/26/21 15:40 Troponin I High Sens 7.3 pg/ml (0-20) 10/26/21 15:40 Total Protein 8.0 gm/dl (6.0-8.3) 10/26/21 15:40 Albumin 4.3 gm/dl (3.4-5.0) 10/26/21 15:40 Globulin 3.7 gm/dl (2.5-4.0) 10/26/21 15:40 Albumin/Globulin Ratio 1.2 (0.9-2) 10/26/21 15:40 TSH 1.080 uIu/ml (0.300-4.500) 10/26/21 15:40 Urine Color Yellow 10/26/21 15:40 Urine Appearance Clear (Clear) 10/26/21 15:40 Urine pH 6.5 (4.5-7.5) 10/26/21 15:40 Ur Specific [place] 1.005 (1.000-1.030) 10/26/21 15:40 Urine Protein Negative (Negative) 10/26/21 15:40 Urine Glucose (UA) Negative (Negative) 10/26/21 15:40 Urine Ketones Negative (Negative) 10/26/21 15:40 Urine Blood Negative (Negative) 10/26/21 15:40 Urine Nitrite Negative (Negative) 10/26/21 15:40 Urine Bilirubin Negative (Negative) 10/26/21 15:40 Urine Urobilinogen Negative (Negative) 10/26/21 15:40 Ur Leukocyte Esterase Negative (Negative) 10/26/21 15:40 SARS-CoV-2, RNA, NAAT NEGATIVE (NEGATIVE) 10/26/21 19:24 Impressions Chest X-Ray 10/26/21 15:29 TWO VIEW CHEST CLINICAL HISTORY: Atypical chest pain. FINDINGS: PA and lateral chest radiographs are correlated with chest CT performed the same day 10/26/2021. The heart is enlarged. The pulmonary vasculature is noncongested. The coronary artery stent is suspected. Atelectasis is noted at the lung bases. Right middle lobe atelectasis appears increased from today's CT scan. No pleural effusion or pneumothorax is seen. The skeletal structures are osteopenic. There are healed bilateral rib fractures. IMPRESSION: 1. Cardiomegaly without radiographic evidence of congestive failure. 2. Atelectasis is noted at the lung bases. Right middle lobe atelectasis appears increased from today's earlier CT scan. ACT 112: Negative or not required by law. Electronically signed by: Shayne Levin M.D. 10/26/2021 7:42 PM Foot X-Ray 10/26/21 15:29 RIGHT FOOT 3 VIEWS CLINICAL HISTORY: Right foot ulceration. FINDINGS: 3 views of the right foot are obtained. No prior studies are available for comparison at the time of dictation. The skeletal structures are osteopenic. No fracture is seen. There is no bony erosion or periostitis. Mild osteoarthritic change is seen at the first metatarsophalangeal joint. There is mild subluxation at the fourth proximal interphalangeal joint. Soft tissue edema overlies the heel. Ulceration is suggested dorsal to the calcaneus. No soft tissue gas is seen. An ankle monitor is in place. IMPRESSION: 1. No acute bony abnormality is identified. 2. Soft tissue edema overlies the heel and a cutaneous ulceration is suggested dorsal to the calcaneus. Electronically signed by: Shayne Levin M.D. 10/26/2021 7:58 PM Chest CTA 10/26/21 16:19 CT ANGIOGRAM OF THE CHEST CLINICAL HISTORY: Atypical chest pain. COMPARISON STUDY: No priors. TECHNIQUE: Following the IV administration of 121 cc of Optiray 320, CT angiogram of the chest was performed from the upper abdomen to the thoracic inlet utilizing the pulmonary embolus protocol. Images are reviewed in the ax ial, sagittal, and coronal planes. 3-D MIPS images are created and assessed. IV contrast was administered without complication. A dose lowering technique was utilized adhering to the principles of ALARA. The examination is degraded by motion artifact. CT DOSE: 423.06 mGy.cm FINDINGS: Thyroid: Imaged portions of the thyroid gland are normal in size and attenuation. Thoracic aorta: There is atherosclerotic calcification of the thoracic aorta. There is mild and minimal dilatation of the ascending thoracic aorta which measures up to 4.0 cm in diameter. The remainder of the thoracic aorta is normal in caliber, and the arch demonstrates standard 3-vessel anatomy. No dissection is seen. Pulmonary vasculature: The pulmonary trunk is normal in caliber. There are no filling defects identified in main, lobar, or proximal segmental pulmonary branches to suggest pulmonary embolus. Evaluation of the segmental and subsegmental vessels is significantly degraded by motion artifact, particularly in the lower lobes. Heart: The heart is enlarged and noting trace pericardial effusion. The coronary arteries are densely calcified. Lungs and pleural spaces: Evaluation of the lung parenchyma is compromised by motion artifact. Secretions are noted in the trachea. Dependent atelectasis is seen at the lung bases. There is no airspace consolidation typical for pneumonia or pleural effusion. Mediastinum: Esophageal wall appears diffusely thickened. There is no mediastinal lymphadenopathy. Leah: Clear. Axillae: There is no axillary lymphadenopathy. Upper abdomen: There is a small hiatal hernia. Partially visualized upper abdominal viscera is otherwise within normal limits. Skeletal structures: The skeletal structures are osteopenic. Spondylotic changes noted in the spine. No lytic or blastic bony lesions are seen. There are chronic/healed bilateral rib fractures. IMPRESSION: 1. Motion compromised examination. 2. There is no evidence of central pulmonary embolus in the main, lobar, or proximal segmental pulmonary arteries. The segmental and subsegmental vessels are not well evaluated. 3. Cardiomegaly. 4. There is no airspace consolidation or pleural effusion. 5. Esophageal wall appears diffusely thickened. Correlate clinically for evidence of esophagitis. This could be further assessed with endoscopy if clinically warranted. 6. There is mild aneurysmal dilatation of the ascending thoracic aorta which measures up to 4.0 cm in diameter. 7. Additional findings as above. ACT 112: Negative or not required by law. Electronically signed by: Shayne Levin M.D. 10/26/2021 6:59 PM Diagnostic Findings EKG as per my interpretation : Rate 105, sinus tachycardia, LAD, LAFB, no ischemia CT right foot initial read: Nonspecific subcutaneous edema of the sole of the foot without definitive organized fluid collection. Please note evaluation for abscess is limited without IVcontrast. R LE arterial Dopplers initial read: Marked plaque with poststenoticwaveforms of the distal right common femoral arteryconsistent with significant upstreamstenosis. 75-99%stenosis of the right superficial femoral arterybased on velocity criteria. The dorsalis pedis arteryis patent (1) Chest pain Chest pain type: unspecified Qualified Code(s): R07.9 - Chest pain, unspecified
[2021-10-26 22:41] LABS: Troponin I High Sensitivity 9.4 pg/ml (0-20)
[2021-10-26 22:54] LABS: Reticulocytes # 0.05 10^6/uL (0.02-0.10)
[2021-10-26 22:55] LABS: Ferritin 12.1 ng/ml (8-388)
[2021-10-26 22:59] LABS: Folate (Folic Acid) > 22.30 ng/ml (>5.38)
[2021-10-26 23:00] LABS: Vitamin B12 1015 pg/ml (180-914)
[2021-10-26] MEDS ORDERED: CARBOHYDRATES FOR HYPOGLYCEMIA PO PRN (23:38)
[2021-10-26] MEDS ORDERED: GLUCOSE 10 TAB/TUBE PO PRN (23:38)
[2021-10-26] MEDS ORDERED: LORazepam 3 MG in SYRINGE 1.5 ML IV ONE (23:38)
[2021-10-26] MEDS ORDERED: GLUCOSE 40% GEL 15 GM TUBE PO PRN (23:38)
[2021-10-26] MEDS ORDERED: ACETAMINOPHEN 325 MG TAB PO PRN (23:38)
[2021-10-26] MEDS ORDERED: NON-FORMULARY MEDICATION (Food Supplemt, Lactose-Reduced [Ensure] Liquid) PO SCH (23:38)
[2021-10-26] MEDS ORDERED: ATIVAN IV ALCOHOL WITHDRAWL IV PRN (23:38)
[2021-10-26] MEDS ORDERED: LORazepam 2 MG in SYRINGE 1 ML IV PRN (23:38)
[2021-10-26] MEDS ORDERED: DEXTROSE 50% 50 ML SYRINGE IV PRN (23:38)
[2021-10-26] MEDS ORDERED: GLUCAGON FOR INJ 1 MG VIAL SQ PRN (23:38)
[2021-10-26] MEDS ORDERED: MoRPHine SULFATE 4 MG/ML 1 ML CARP\\VIAL IV PRN (23:38)
[2021-10-26] MEDS ORDERED: LORazepam 1 MG in SYRINGE 0.5 ML IV PRN (23:38)
[2021-10-26] MEDS ORDERED: oxyCODONE HCL IR 5 MG TAB (IMMEDIATE RELEASE) PO PRN (23:38)
[2021-10-26] MEDS ORDERED: PROMETHAZINE HCL 12.5 MG in SODIUM CHLORIDE 0.9% 50 ML IV PRN (23:38)
[2021-10-27] MEDS ORDERED: LANTUS PER UNIT CHARGE SQ STA
[2021-10-27] MEDS: INSULIN ASPART PER UNIT SC SCH ×5 (00:04→21:07)
[2021-10-27] MEDS ORDERED: LORazepam 2 MG in SYRINGE 1 ML IV PRN (00:06)
[2021-10-27] MEDS ORDERED: LORazepam 3 MG in SYRINGE 1.5 ML IV PRN (00:06)
[2021-10-27] MEDS ORDERED: LORazepam 1 MG in SYRINGE 0.5 ML IV PRN (00:06)
[2021-10-27] MEDS ORDERED: ATIVAN IV ALCOHOL WITHDRAWL IV PRN (00:06)
[2021-10-27] MEDS ORDERED: PNEUMOCOCCAL POLYSACCHARIDES 25 MCG/0.5 ML VIAL/SYR IM ONE (00:29)
[2021-10-27] MEDS: cilostazoL 100 MG TAB PO SCH ×3 (00:38→21:07)
[2021-10-27] MEDS: DOXYCYCLINE HYCLATE 100 MG CAP PO SCH ×3 (00:38→21:07)
[2021-10-27] MEDS: PRAZOSIN HCL 1 MG CAP PO SCH ×2 (00:38→21:06)
[2021-10-27] MEDS: QUEtiapine FUMARATE 200 MG TAB PO SCH ×2 (00:39→21:06)
[2021-10-27] MEDS: GABAPENTIN 800 MG TAB PO SCH ×4 (00:39→21:07)
[2021-10-27] MEDS: LACTATED RINGER'S 1,000 ML IV SCH ×2 (01:54→19:28)
[2021-10-27 06:32] LABS: Basophils % (auto) 1.3 %; Eosinophils # (auto) 0.28 K/uL (0-0.50); Eosinophils % (auto) 3.6 %; Hematocrit (blood only) 27.1 % (40.1-51.0); Hemoglobin 8.3 g/dl (14.0-18.0); Immature Granulocytes # (auto) 0.02 K/uL (0.00-0.02); Immature Granulocytes % (auto) 0.3 %; Lymphocytes # (auto) 1.92 K/uL (1.2-3.4); Lymphocytes % (auto) 24.9 %; Mean Corpuscular Hemoglobin 22.6 pg (25.0-34.0); Mean Corpuscular Hgb Conc 30.6 g/dL (32.0-36.0); Mean Corpuscular Volume 73.6 fL (80.0-100.0); Mean Platelet Volume 8.8 fL (9.4-12.4); Monocytes # (auto) 0.84 K/uL (0.24-0.82); Monocytes % (auto) 10.9 %; Neutrophils # (auto) 4.56 K/uL (1.4-6.5); Platelet Count 342 K/uL (130-400); RDW Coefficient of Variation 22.3 % (11.5-14.5); RDW Standard Deviation 58.9 fL (36.4-46.3); Red Blood Count 3.68 M/uL (4.63-6.08); White Blood Count 7.72 K/ul (4.8-10.8)
[2021-10-27 06:50] LABS: BUN Creatinine Ratio 10.8 (10-20); Calcium 8.6 mg/dl (8.5-10.1); Chol HDL Ratio 2.2 (0-5); Creatinine Clr Calc Pharmacy 102.2 ml/min; Est GFR (African American) 118.3 ml/min; Est GFR (Non-African American) 102.1 ml/min; Potassium 3.6 mmol/L (3.5-5.1)
[2021-10-27 07:01] LABS: Anisocytosis Present
--- NOTE | 2021-10-27 07:35 | CT Scan Report ---
CT foot RT wo con CLINICAL HISTORY: swelling ro abscess TECHNIQUE: Multidetector row helical CT of the right foot was performed without intravenous contrast. Coronal and sagittal reformations were obtained. Automated dose lowering techniques and/or adjustmen t according to patient size were utilized for this examination. CT DOSE: 171.65 mGy.cm Comparison: None available at the time of this dictation. FINDINGS: The osseous structures are without fracture or dislocation. The joint spaces are maintained. There is nonspecific edema in the plantar soft tissues. No evidence of drainable fluid collection is seen. IMPRESSION: Nonspecific edema without evidence of acute fracture or abscess. ACT 112: Negative or not required by law. Electronically signed by: Oscar Edwards M.D. 10/27/2021 7:33 AM
[2021-10-27] MEDS: QUEtiapine FUMARATE 25 MG TABLET PO SCH ×2 (08:26→17:26)
[2021-10-27] MEDS: amLODIPine BESYLATE 5 MG TAB PO SCH (08:27)
[2021-10-27] MEDS: CYANOCOBALAMIN (B-12) 500 MCG TABLET PO SCH (08:27)
[2021-10-27] MEDS: DULoxetine HCL 30 MG CAP PO SCH (08:27)
[2021-10-27] MEDS: FOLIC ACID 1 MG TAB PO SCH (08:27)
[2021-10-27] MEDS: MULTIVITAMIN TAB PO SCH (08:27)
[2021-10-27] MEDS: THIAMINE HCL 100 MG TAB PO SCH (08:27)
[2021-10-27] MEDS: ASPIRIN 81 MG ECTAB PO SCH (08:27)
[2021-10-27] MEDS: ESCITALOPRAM OXALATE 10 MG TAB PO SCH (08:27)
[2021-10-27] MEDS: ENOXAPARIN INJ 40 MG/0.4 ML SYR SQ SCH (08:27)
[2021-10-27] MEDS: CLOPIDOGREL BISULFATE 75 MG TAB PO SCH (08:27)
[2021-10-27] MEDS: BACLOFEN 10 MG TAB PO SCH ×3 (08:32→21:06)
--- NOTE | 2021-10-27 08:44 | Ultrasound Report ---
US arterial duplex LE RT CLINICAL HISTORY: RLE pain TECHNIQUE: Real-time grayscale and color and spectral Doppler ultrasound imaging of the bilateral low er extremity arteries was performed. Measurements calculated based on NASCET criteria. COMPARISON: None available at the time of this dictation. FINDINGS: RIGHT: Common femoral artery: Triphasic waveforms. Peak systolic velocity (PSV) 130 cm/s. Deep femoral artery: Triphasic waveforms. PSV 416 cm/s. Superficial femoral artery: Triphasic waveforms. PSV 592 cm/s proximally, monophasic distally with ma ximum velocity of 38 cm/s Popliteal artery: Monophasic waveforms. PSV 52 cm/s. Anterior tibial artery: Monophasic waveforms. PSV 40 cm/s. Posterior tibial artery: Monophasic waveforms. PSV 46 cm/s. Peroneal artery: Monophasic waveforms. PSV 46 cm/s. Dorsalis pedis: Monophasic waveforms. PSV 42 cm/s. Extensive atherosclerotic disease is seen. IMPRESSION: Elevated velocities are seen in the superficial femoral artery. Monophasic, parvus tardus waveforms a re seen distally with diminished velocities. ACT 112: Negative or not required by law. Electronically signed by: Oscar Edwards M.D. 10/27/2021 8:43 AM
[2021-10-27 08:51] LABS: Estimated Average Glucose 174 mg/dl; Hemoglobin A1C 7.7 % (4.5-5.6)
[2021-10-27] MEDS: METOPROLOL SUCC 25MG EXT REL TAB PO SCH (10:06)
--- NOTE | 2021-10-27 12:02 | Electrocardiogram Report ---
Test Reason : Blood Pressure : / mmHG Vent. Rate : 107 BPM Atrial Rate : 107 BPM P-R Int : 136 ms QRS Dur : 094 ms QT Int : 370 ms P-R-T Axes : 054 -07 080 degrees QTc Int : 493 ms Sinus tachycardia Otherwise normal ECG No previous ECGs available Confirmed by Farhat Perez ([id number]) on 10/27/2021 12:02:28 PM Referred By: REFERRED SELF Confirmed By:Mao Perez
--- NOTE | 2021-10-27 12:55 | Hospitalist Progress Note ---
Date of Service October 27, 2021 Assessment & Plan (1) Chest pain: Plan: Possibly from uncontrolled hypertension secondary to alcohol withdrawal Rule out ACS, hx CAD status post stent (recent stent placed 2014) EKG and cardiac enzymes are unremarkable Echo of the heart showed: Left ventricular systolic function is normal, EF 60 to 65%, grade 1 diastolic dysfunction, there is trace tricuspid regurgitation and Doppler findings do not suggest pulmonary hypertension EKG remained unremarkable Doubt any ACS Appreciate cardiology input and recommendation (2) Alcoholism: Plan: [facility] for the last 6 days He is a resident of [facility] who arrived at [facility] voluntarily We will continue with alcohol withdrawal protocol He has a tracking device right ankle (3) CAD (coronary artery disease), [place] coronary artery: Plan: History of CAD status post stent placement in 2014-details of which is not known 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 We will get records from the primary care office (4) Anemia: Plan: Anemia work-up, transfuse PRBC if hemoglobin less than 8 and for symptomatic anemia We will get records from the PCPs office Iron level is low Could be secondary to chronic blood loss Will start iron tablet Will need endoscopy as an outpatient (5) Hypertension: Plan: Blood pressure was noted to be very high on admission May be contributed by alcohol withdrawal May be caused some chest pain Pressure seems to be reasonably controlled (6) Hyperlipidemia: Plan: On statin Rx (7) Diabetes type 2, uncontrolled: Plan: Basal insulin adjusted for n.p.o. status, ISS BG goal 1 10-1 40, check hemoglobin A1c Retrieve recent records/labs from PCP's office. (8) Non-healing wound of right heel: Plan: Right heel wound of 2 months duration Improving on recent doxycycline Rx, no sepsis for now hx PVD CT of the right foot did not show any evidence of deep wound and or osteomyelitis We will continue current medication Wound care consult Outpatient podiatry consult Plan: DVT prophylaxis. Lovenox subcu Full code Disposition Back to [facility] when stable Admission and Anticipated Discharge Date Admission Date: October 26, 2021 Subjective 10/27/2021 The patient was seen and examined in telemetry unit He was very drowsy during examination but denies any significant symptoms He was admitted last night with chest pain and nonhealing left foot wound Still complains minimal chest pain at rest without any shortness of breath Denies any abdominal pain nausea and or vomiting Review of Systems Review of Systems: All systems reviewed and are unremarkable except as documented below Respiratory: No shortness of breath Cardiovascular: Additional Comments: Denies any palpitation but complains to have minimal chest pain even at rest Physical Exam Physical Exam: Lying in bed comfortably but looks a bit drowsy Constitutional: well developed, well nourished, + ill appearing and average body habitus Eyes: PERRL, conjunctivae normal, anicteric sclerae ENMT: external ear and nose normal, oropharynx normal Neck: trachea midline, no thyromegaly Respiratory: no respiratory distress Auscultation: + diminished lung sounds and + crackles (Minimal bibasilar crackles) Cardiovascular: Rate/Rhythm: regular rate, regular rhythm and + tachycardic Heart Sounds: normal S1 and normal S2; no murmur Extremities: no edema Gastrointestinal (Abdomen): Inspection/Auscultation: normal bowel sounds; abdomen not distended Percussion/Palpation: abdomen soft; abdomen nontender Musculoskeletal: No acute arthritis in any joint. Right heel is bandaged. Right ankle tracking device Neurologic: Alert, awake and oriented x3. Generally weak but no focal neurodeficit Lymphatic: no cervical or axillary lymphadenopathy Results & Data Results & Data ([facility]) Vital Signs (Past 12 Hours) Vital Signs Temp Pulse Pulse Resp BP Pulse Ox 10/27/21 08:23 117 H 133/65 10/27/21 08:09 113 H 10/27/21 07:05 36.5 C 112 H 18 95/64 L 93 10/27/21 03:37 36.8 C 118 H 20 127/61 93 Laboratory Results Short CBC 10/26/21 10/27/21 Range/Units 15:40 05:43 WBC 9.96 7.72 (4.8-10.8) K/ul Hgb 10.2 L 8.3 L (14.0-18.0) g/dl Hct 33.7 L 27.1 L (40.1-51.0) % Plt Count 392 342 (130-400) K/uL BMP 10/26/21 10/26/21 10/27/21 15:40 17:17 05:43 Sodium 135 L 137 Potassium TNP 3.5 3.6 Chloride 101 104 Carbon Dioxide 25 28 BUN 7 7 Creatinine 0.61 0.65 Glucose 150 H 102 H Calcium 9.9 8.6 Liver Function 10/26/21 10/26/21 Range/Units 15:40 17:17 Total Bilirubin 0.6 (0.2-1.0) mg/dl AST TNP 15 ALT 15 (7-52) U/L Alkaline Phosphatase 83 (34-104) U/L Albumin 4.3 (3.4-5.0) gm/dl Urine 10/26/21 Range/Units 15:40 Urine Color Yellow Urine Appearance Clear (Clear) Urine pH 6.5 (4.5-7.5) Ur Specific [place] 1.005 (1.000-1.030) Urine Protein Negative (Negative) Urine Glucose (UA) Negative (Negative) Medications Administered Current Inpatient Medications Acetaminophen (Acetaminophen 325 Mg Tab) 650 mg PO Q4H PRN PRN Reason: Pain or Fever Stop: 11/25/21 23:37 Amlodipine Besylate (Amlodipine Besylate 5 Mg Tab) 5 mg PO DAILY [facility] Stop: 11/26/21 08:59 Last Admin: 10/27/21 08:27 Dose: 5 mg Documented by: Aspirin (Aspirin 81 Mg Ectab) 81 mg PO DAILY [facility] Stop: 11/26/21 08:59 Last Admin: 10/27/21 08:27 Dose: 81 mg Documented by: Atorvastatin Calcium (Atorvastatin 40 Mg Tab) 80 mg PO HS [facility] Stop: 11/26/21 20:59 Baclofen (Baclofen 10 Mg Tab) 5 mg PO TID [facility] Stop: 11/26/21 08:59 Last Admin: 10/27/21 08:32 Dose: 5 mg Documented by: Cilostazol (Cilostazol 100 Mg Tab) 100 mg PO BID [facility] Stop: 11/25/21 23:37 Last Admin: 10/27/21 08:27 Dose: 100 mg Documented by: Clopidogrel Bisulfate (Clopidogrel Bisulfate 75 Mg Tab) 75 mg PO DAILY [facility] Stop: 11/26/21 08:59 Last Admin: 10/27/21 08:27 Dose: 75 mg Documented by: Cyanocobalamin (Cyanocobalamin (B-12) 500 Mcg Tablet) 1,000 mcg PO DAILY [facility] Stop: 11/26/21 08:59 Last Admin: 10/27/21 08:27 Dose: 1,000 mcg Documented by: Dextrose (Dextrose 50% 50 Ml Syringe) 25 - 50 ml IV UD PRN; Protocol PRN Reason: Hypoglycemia Protocol Stop: 11/25/21 23:37 Doxycycline Hyclate (Doxycycline Hyclate 100 Mg Cap) 100 mg PO BID [facility] Stop: 11/02/21 23:37 Last Admin: 10/27/21 08:26 Dose: 100 mg Documented by: Duloxetine HCl (Duloxetine Hcl 30 Mg Cap) 30 mg PO DAILY [facility] Stop: 11/26/21 08:59 Last Admin: 10/27/21 08:27 Dose: 30 mg Documented by: Enoxaparin Sodium (Enoxaparin Inj 40 Mg/0.4 Ml Syr) 40 mg SQ QAM [facility] Stop: 11/26/21 08:59 Last Admin: 10/27/21 08:27 Dose: 40 mg Documented by: Escitalopram Oxalate (Escitalopram Oxalate 10 Mg Tab) 10 mg PO DAILY [facility] Stop: 11/26/21 08:59 Last Admin: 10/27/21 08:27 Dose: 10 mg Documented by: Folic Acid (Folic Acid 1 Mg Tab) 1 mg PO DAILY [facility] Stop: 11/26/21 08:59 Last Admin: 10/27/21 08:27 Dose: 1 mg Documented by: Gabapentin (Gabapentin 800 Mg Tab) 800 mg PO TID [facility] Stop: 11/25/21 23:37 Last Admin: 10/27/21 08:26 Dose: 800 mg Documented by: Glucagon (Glucagon For Inj 1 Mg Vial) 1 mg SQ UD PRN; Protocol PRN Reason: Hypoglycemia Protocol Stop: 11/25/21 23:37 Glucose (Glucose 40% Gel 15 Gm Tube) 15 - 30 gm PO UD PRN; Protocol PRN Reason: Hypoglycemia Protocol Stop: 11/25/21 23:37 Glucose (Glucose 10 Tab/Tube) 4 - 8 tab PO UD PRN; Protocol PRN Reason: Hypoglycemia Treatment Stop: 11/25/21 23:37 Promethazine HCl 12.5 mg/ (Sodium Chloride) 50.5 mls @ 202 mls/hr IV Q6H PRN PRN Reason: Nausea And Vomiting Stop: 11/25/21 23:37 Lactated Ringer's (Lr) 1,000 mls @ 50 mls/hr IV .Q20H [facility] Stop: 11/26/21 00:00 Last Admin: 10/27/21 01:54 Dose: 50 mls/hr Documented by: Lorazepam 1 mg/ Syringe 1 mls @ 2 mls/min IV UD PRN; Protocol PRN Reason: EtOH Withdrawal AWSS Score 6,7 Stop: 11/26/21 00:05 Lorazepam 2 mg/ Syringe 2 mls @ 2 mls/min IV UD PRN; Protocol PRN Reason: EtOH Withdrawal AWSS Score 8,9 Stop: 11/26/21 00:05 Lorazepam 3 mg/ Syringe 3 mls @ 2 mls/min IV UD PRN; Protocol PRN Reason: etoh withdrawal AWSS > 9 Insulin Aspart (Insulin Aspart Per Unit) 0 units SC ACHS [facility] Stop: 11/25/21 23:37 Last Admin: 10/27/21 11:40 Dose: 6 units Documented by: Insulin Glargine (Lantus Per Unit Charge) 10 units SQ HS [facility] Stop: 11/26/21 20:59 Metoprolol Succinate (Metoprolol Succ 25mg Ext Rel Tab) 25 mg PO QAM [facility] Stop: 11/26/21 09:29 Last Admin: 10/27/21 10:06 Dose: 25 mg Documented by: Miscellaneous (Carbohydrates For Hypoglycemia ) 15 - 30 gm PO UD PRN PRN Reason: Hypoglycemia Protocol Stop: 11/25/21 23:37 Morphine Sulfate (Morphine Sulfate 4 Mg/Ml 1 Ml Carp\Vial) 4 mg IV Q4H PRN PRN Reason: Pain Stop: 11/09/21 23:37 Multivitamins (Multivitamin Tab) 1 tab PO DAILY [facility] Stop: 11/26/21 08:59 Last Admin: 10/27/21 08:27 Dose: 1 tab Documented by: Oxycodone HCl (Oxycodone Hcl Ir 5 Mg Tab (Immediate Release)) 5 mg PO Q4H PRN PRN Reason: Pain Stop: 11/09/21 23:37 Prazosin HCl (Prazosin Hcl 1 Mg Cap) 3 mg PO HS [facility] Stop: 11/25/21 23:37 Last Admin: 10/27/21 00:38 Dose: 3 mg Documented by: Quetiapine Fumarate (Quetiapine Fumarate 25 Mg Tablet) 25 mg PO BID@0700,1700 [facility] Stop: 11/26/21 06:59 Last Admin: 10/27/21 08:26 Dose: 25 mg Documented by: Quetiapine Fumarate (Quetiapine Fumarate 200 Mg Tab) 200 mg PO [facility] Stop: 11/26/21 00:14 Last Admin: 10/27/21 00:39 Dose: 200 mg Documented by: Thiamine HCl (Thiamine Hcl 100 Mg Tab) 100 mg PO DAILY [facility] Stop: 11/26/21 08:59 Last Admin: 10/27/21 08:27 Dose: 100 mg Documented by: (1) Chest pain Chest pain type: unspecified Qualified Code(s): R07.9 - Chest pain, unsp ecified
--- NOTE | 2021-10-27 13:20 | Cardiology Consultation ---
Date of Consultation October 27, 2021 Assessment & Plan (1) Chest pain: (2) CAD (coronary artery disease), tolowa dee-ni' coronary artery: (3) Hypertension: (4) Non-healing wound of right heel: (5) Peripheral vascular disease: (6) Anemia: (7) Hyperlipidemia: (8) Alcoholism: Patient admitted for CP/HTN while undergoing alcohol detoxification at local inpatient rehab facility. He reports compliance with meds. HR/BP elevated on arrival, likely due to alcohol withdrawal symptoms. HS troponin remain unremarkable since admission x4. EKG without acute changes. BP improved with one dose of clonidine and home amlodipine. He reports previously taking metoprolol but not recently. Will resume metoprolol 25 mg daily to aid with HR"s and BP. Echo was unremarkable without wall motion abnormalities. He remains CP free. Records have been requested from past cardiac history including details about intervention. However, given unremarkable findings since admission and improved symptoms, likely no further cardiac testing is warranted. Continue ASA, Plavix, statin, amlodipine and beta juani added. He has right foot/heal ulceration and reports history of PVD and possible prior intervention. Details uncertain. RLE arterial duplex with significant atherosclerosis. Recommend wound consult and possible vascular surgery consult. Continue ASA, Plavix, statin Hbg trending lower since admission. no evidence of GI bleed. Iron low. Likely iron deficiency anemia. Defer further work up to hospitalist. Case to be discussed with Dr. Sears. Will follow. Supervising Physician Co-Signing Physician Notes Patient seen examined the bedside. History of coronary artery disease status post stenting and peripheral vascular disease. Patient transferred from rehab facility due to chest pain. Pain-free since admission. ECG without ischemic changes. Telemetry reveals sinus rhythm and sinus tachycardia. No orthopnea, PND, or edema. Right heel ulcer noted. Podiatry consulted. Uncontrolled hypertension noted on admission. PE: VSS. GEN: NAD, AAO x3. Heart: Regular rhythm, normal S1-S2. No murmur. Lungs: Clear bilateral, no rales, rhonchi, wheeze. Extremities: No edema. Right lower extremity heel ulcer. A/P: Agree with above PA-C history, physical exam, assessment and plan. Add beta-juani therapy. Continue aspirin, Plavix, amlodipine, Pletal, and atorvastatin as previously ordered. Preliminary review of bedside echocardiogram reveals preserved LV systolic function. No significant pericardial effusion. Thank you for allow me to participate in the care of your patient. History of Present Illness Reason for Consultation: Chest pain; HTN; History of CAD Requesting Physician: Dr. Gonzalez Attending Physician: Dr. Sears History of Present Illness Patient is a 66-year-old male who presented to [facility] yesterday with complaints of chest pain described as a "crushing" pain with radiation to his jaw and left arm. Symptoms occurred while at rest. He felt his heart racing at the time. Symptoms lasted for about 30 minutes and resolved. He has been residing at [facility] rehab facility for alcohol detox. He is originally from [facility]. He recalls having a history of prior CT in 2009 receiving 2 stents at that time (unknown vessels). He had repeat cath in 2010 apparently and had 1-2 more stents placed in a different artery, per patient. These procedures were done in [place]. Records have been requested. Since that time, he moved to [place]. He denies further coronary interventions, but possibly was told he had PAD and had prior intervention on his right leg. Details unknown. Records requested. On admission, EKG demonstrated sinus tachycardia without acute changes. Serial HS troponins have been unremarkable. BP was elevated on arrival. Treated with home meds and one time dose of clonidine. He also has been dealing with right heel/foot ulcer. Imaging thus far is negative for osteomyelitis. PCP in [place] started antibiotics about 2weeks ago, prior to rehab placement. He reports compliance with home meds. At time of consult, patient reports feeling well. No recurrent chest pain last night or this morning. BP has trended down. HR remains elevated. Likely due to withdrawal/detox. He reports he was previously on metoprolol but this was stopped "many years ago" for unknown reasons. No fever or chills. no orthopnea, PND or edema. NO palpitations. NO dizziness. Allergies Allergy/AdvReac Type Severity Reaction Status Date / Time hydroxyzine AdvReac Intermediate "DOESN'T Verified 10/26/21 18:51 WORK" PER PT. Home Medications Medication Instructions Recorded Confirmed Type amlodipine 5 mg tablet 5 mg PO DAILY 10/26/21 10/26/21 History aspirin 81 mg tablet,delayed 81 mg PO DAILY 10/26/21 10/26/21 History release atorvastatin 80 mg tablet 80 mg PO HS 10/26/21 10/26/21 History bacitracin 500 unit/gram topical 1 applic TOPICAL DAILY 10/26/21 10/26/21 History ointment baclofen 5 mg tablet 5 mg PO TID 10/26/21 10/26/21 History cilostazol 100 mg tablet 100 mg PO BID 10/26/21 10/26/21 History clopidogrel 75 mg tablet (Plavix) 75 mg PO DAILY 10/26/21 10/26/21 History cyanocobalamin (vitamin B-12) 1,000 mcg PO DAILY 10/26/21 10/26/21 History 1,000 mcg tablet (Vitamin B-12) doxycycline monohydrate 100 mg 100 mg PO BID 10/26/21 10/26/21 History tablet duloxetine 30 mg capsule,delayed 30 mg PO DAILY 10/26/21 10/26/21 History release sprinkle escitalopram oxalate 10 mg tablet 10 mg PO DAILY 10/26/21 10/26/21 History (Lexapro) folic acid 1 mg tablet 1 mg PO DAILY 10/26/21 10/26/21 History food supplemt, lactose-reduced 1 ea PO BID 10/26/21 10/26/21 History (Ensure) gabapentin 800 mg tablet 800 mg PO TID 10/26/21 10/26/21 History metformin 500 mg tablet 500 mg PO BID 10/26/21 10/26/21 History multivitamin 1 tab PO DAILY 10/26/21 10/26/21 History prazosin 1 mg capsule 1 mg PO HS 10/26/21 10/26/21 History prazosin 2 mg capsule 2 mg PO HS 10/26/21 10/26/21 History quetiapine 200 mg tablet (Seroquel) 200 mg PO HS 10/26/21 10/26/21 History quetiapine 25 mg tablet (Seroquel) 25 mg PO BID 10/26/21 10/26/21 History thiamine HCl (vitamin B1) 100 mg 100 mg PO DAILY 10/26/21 10/26/21 History tablet Patient History Social History Smoking Status: Current some day smoker Second Hand Exposure: No; Do You Dip or Chew Tobacco: No; Tobacco Cessation Education Requested by Patient: No Hx Alcohol Use: Yes Alcohol type: beer Hx Substance Use: No Preferred Language: Hebrew Communication Ability: Effective Bilingual Student Tutor Required: No Beliefs That Will Affect Care: None marital status: Single Current Living Situation: Alone Current Living Situation Comment: Pt is from [place] and is currently at [facility] Other Information That Helps Us Care for You: No Feels Safe at Home: Yes Safety Concerns: Feels Safe At This Time Assistive Devices: Cane Review of Systems Review of Systems: All systems reviewed & are unremarkable except as noted in HPI & below Physical Exam Constitutional: WD/WN, vitals as above no acute distress Neck: trachea midline, no thyromegaly Respiratory: normal respiratory effort, lungs clear to auscultation Cardiovascular: Rate/Rhythm: regular rhythm and + tachycardic Heart Sounds: normal S1 and normal S2; no murmur Palpation: normal PMI Vessels: no JVD Extremities: no edema Gastrointestinal (Abdomen): normal bowel sounds, soft, nontender, no hepatosplenomegaly Musculoskeletal: no cyanosis or clubbing, extremities motor strength 5/5 Skin: no rashes, warm and dry Neurologic: PERRL, EOMI, accommodation nl, no face palsy, no dysarthria Psychiatric: A+Ox3, euthymic affect Results & Data ([facility]) Vital Signs (Past 12 Hours) Vital Signs Temp Pulse Pulse Resp BP Pulse Ox 10/27/21 08:23 117 H 133/65 10/27/21 08:09 113 H 10/27/21 07:05 36.5 C 112 H 18 95/64 L 93 10/27/21 03:37 36.8 C 118 H 20 127/61 93 Laboratory Results Cardiac Enzymes 10/26/21 10/26/21 10/26/21 Range/Units 15:40 15:40 17:17 AST TNP 15 Troponin I High Sens 7.3 (0-20) pg/ml 10/26/21 10/26/21 10/27/21 Range/Units 17:17 22:24 05:43 AST Troponin I High Sens 9.4 10.2 6.9 (0-20) pg/ml Coagulation 10/26/21 Range/Units 15:40 PT 10.2 (9.0-12.0) Seconds APTT 24.3 (21.0-31.0) Seconds Lipids 10/27/21 Range/Units 05:43 Triglycerides 57 (0-150) mg/dl Cholesterol 77 (0-200) mg/dl HDL Cholesterol 35 mg/dl Cholesterol/HDL Ratio 2.2 (0-5) CBC 10/26/21 10/27/21 Range/Units 15:40 05:43 WBC 9.96 7.72 (4.8-10.8) K/ul RBC 4.62 L 3.68 L (4.63-6.08) M/uL Hgb 10.2 L 8.3 L (14.0-18.0) g/dl Hct 33.7 L 27.1 L (40.1-51.0) % Plt Count 392 342 (130-400) K/uL Neut # (Auto) 6.28 4.56 (1.4-6.5) K/uL Lymph # (Auto) 2.39 1.92 (1.2-3.4) K/uL Nelson # (Auto) 0.79 0.84 H (0.24-0.82) K/uL Eos # (Auto) 0.32 0.28 (0-0.50) K/uL Baso # (Auto) 0.11 0.10 (0-0.2) K/uL Comprehensive Metabolic Panel 10/26/21 10/26/21 10/27/21 Range/Units 15:40 17:17 05:43 Sodium 135 L 137 (136-145) mmol/L Potassium TNP 3.5 3.6 Chloride 101 104 (98-107) mmol/L Carbon Dioxide 25 28 (21-32) mmol/L BUN 7 7 (6-23) mg/dl Creatinine 0.61 0.65 (0.6-1.4) mg/dl Glucose 150 H 102 H (70-99(Fasting)) mg/dl Calcium 9.9 8.6 (8.5-10.1) mg/dl AST TNP 15 ALT 15 (7-52) U/L Alkaline Phosphatase 83 (34-104) U/L Total Protein 8.0 (6.0-8.3) gm/dl Albumin 4.3 (3.4-5.0) gm/dl Intake and Output 10/26/21 10/27/21 10/27/21 22:59 06:59 14:59 Intake Total 1000 / 1340 340 / 1340 Output Total 400 / 400 Balance 1000 / 940 -60 / 940 Intake: IV 1000 / 1100 100 / 1100 Magnesium Sulfate / D5w 1 gm In 100 / 100 100 ml @ 50 mls/hr IV ONE ONE Rx#:[id number] Sodium Chloride 0.9% 1000ML 1, 1000 / 1000 000 ml @ 999 mls/hr IV .Q1H1M ONE Rx#:[id number] Oral 240 / 240 Output: Urine 400 / 400 Other: Other Intake Source Patient is NPO Weight 69.5 kg 68.6 kg 68.6 kg Weight Measurement Method Chair Scale Built in [facility] Patient Weight 10/28/21 06:59 Weight 68.6 kg Laboratory Results WBC 7.72 K/ul (4.8-10.8) 10/27/21 05:43 RBC 3.68 M/uL (4.63-6.08) L 10/27/21 05:43 Hgb 8.3 g/dl (14.0-18.0) L 10/27/21 05:43 Hct 27.1 % (40.1-51.0) L 10/27/21 05:43 MCV 73.6 fL (80.0-100.0) L 10/27/21 05:43 MCH 22.6 pg (25.0-34.0) L 10/27/21 05:43 MCHC 30.6 g/dL (32.0-36.0) L 10/27/21 05:43 RDW Std Deviation 58.9 fL (36.4-46.3) H 10/27/21 05:43 RDW Coeff of Mini 22.3 % (11.5-14.5) H 10/27/21 05:43 Plt Count 342 K/uL (130-400) 10/27/21 05:43 MPV 8.8 fL (9.4-12.4) L 10/27/21 05:43 Immature Gran % (Auto) 0.3 % 10/27/21 05:43 Neut % (Auto) 59.0 % 10/27/21 05:43 Lymph % (Auto) 24.9 % 10/27/21 05:43 Nelson % (Auto) 10.9 % 10/27/21 05:43 Eos % (Auto) 3.6 % 10/27/21 05:43 Baso % (Auto) 1.3 % 10/27/21 05:43 Reticulocyte % (Auto) 1.0 % (0.5-2.0) 10/26/21 22:24 Neut # (Auto) 4.56 K/uL (1.4-6.5) 10/27/21 05:43 Lymph # (Auto) 1.92 K/uL (1.2-3.4) 10/27/21 05:43 Nelson # (Auto) 0.84 K/uL (0.24-0.82) H 10/27/21 05:43 Eos # (Auto) 0.28 K/uL (0-0.50) 10/27/21 05:43 Baso # (Auto) 0.10 K/uL (0-0.2) 10/27/21 05:43 Reticulocyte # 0.05 10^6/uL (0.02-0.10) 10/26/21 22:24 Immature Gran # (Auto) 0.02 K/uL (0.00-0.02) 10/27/21 05:43 Anisocytosis Present 10/27/21 05:43 Schistocytes Occasional 10/26/21 15:40 PT 10.2 Seconds (9.0-12.0) 10/26/21 15:40 INR 1.0 (0.9-1.1) 10/26/21 15:40 APTT 24.3 Seconds (21.0-31.0) 10/26/21 15:40 PTT Ratio 0.9 10/26/21 15:40 Sodium 137 mmol/L (136-145) 10/27/21 05:43 Potassium 3.6 mmol/L (3.5-5.1) 10/27/21 05:43 Chloride 104 mmol/L (98-107) 10/27/21 05:43 Carbon Dioxide 28 mmol/L (21-32) 10/27/21 05:43 Anion Gap 5 (3-11) 10/27/21 05:43 BUN 7 mg/dl (6-23) 10/27/21 05:43 Creatinine 0.65 mg/dl (0.6-1.4) 10/27/21 05:43 Est Cr Clr Drug Dosing 102.2 ml/min 10/27/21 05:43 Est GFR ( Amer) 118.3 ml/min 10/27/21 05:43 Est GFR (Non-Af Amer) 102.1 ml/min 10/27/21 05:43 BUN/Creatinine Ratio 10.8 (10-20) 10/27/21 05:43 Glucose 102 mg/dl (70-99(Fasting)) H 10/27/21 05:43 POC Glucose 240 mg/dl (70-99) H 10/27/21 11:32 Estimat Average Glucose 174 mg/dl 10/26/21 15:40 Hemoglobin A1c 7.7 % (4.5-5.6) H 10/26/21 15:40 Calcium 8.6 mg/dl (8.5-10.1) 10/27/21 05:43 Magnesium 1.7 mg/dl (1.7-2.4) 10/26/21 15:40 Iron 17 mcg/dl (35-175) L 10/26/21 17:17 Transferrin 343 mg/dl (200-360) 10/26/21 17:17 Ferritin 12.1 ng/ml (8-388) 10/26/21 17:17 Total Bilirubin 0.6 mg/dl (0.2-1.0) 10/26/21 15:40 AST 15 U/L (13-39) 10/26/21 17:17 ALT 15 U/L (7-52) 10/26/21 15:40 Alkaline Phosphatase 83 U/L (34-104) 10/26/21 15:40 Troponin I High Sens 6.9 pg/ml (0-20) 10/27/21 05:43 Total Protein 8.0 gm/dl (6.0-8.3) 10/26/21 15:40 Albumin 4.3 gm/dl (3.4-5.0) 10/26/21 15:40 Globulin 3.7 gm/dl (2.5-4.0) 10/26/21 15:40 Albumin/Globulin Ratio 1.2 (0.9-2) 10/26/21 15:40 Triglycerides 57 mg/dl (0-150) 10/27/21 05:43 Cholesterol 77 mg/dl (0-200) 10/27/21 05:43 LDL Cholesterol, Calc 31 mg/dl 10/27/21 05:43 VLDL Cholesterol, Calc 11 mg/dl (0-30) 10/27/21 05:43 HDL Cholesterol 35 mg/dl 10/27/21 05:43 Cholesterol/HDL Ratio 2.2 (0-5) 10/27/21 05:43 Vitamin B12 1015 pg/ml (180-914) H 10/26/21 17:19 Folate > 22.30 ng/ml (>5.38) 10/26/21 17:19 TSH 1.080 uIu/ml (0.300-4.500) 10/26/21 15:40 Urine Color Yellow 10/26/21 15:40 Urine Appearance Clear (Clear) 10/26/21 15:40 Urine pH 6.5 (4.5-7.5) 10/26/21 15:40 Ur Specific Wells 1.005 (1.000-1.030) 10/26/21 15:40 Urine Protein Negative (Negative) 10/26/21 15:40 Urine Glucose (UA) Negative (Negative) 10/26/21 15:40 Urine Ketones Negative (Negative) 10/26/21 15:40 Urine Blood Negative (Negative) 10/26/21 15:40 Urine Nitrite Negative (Negative) 10/26/21 15:40 Urine Bilirubin Negative (Negative) 10/26/21 15:40 Urine Urobilinogen Negative (Negative) 10/26/21 15:40 Ur Leukocyte Esterase Negative (Negative) 10/26/21 15:40 Nasal Screen MRSA (PCR) Negative (Negative) 10/27/21 01:45 SARS-CoV-2, RNA, NAAT NEGATIVE (NEGATIVE) 10/26/21 19:24 Blood Type A Positive 10/26/21 22:24 Antibody Screen NEGATIVE 10/26/21 22:24 Impressions Chest X-Ray 10/26/21 15:29 TWO VIEW CHEST CLINICAL HISTORY: Atypical chest pain. FINDINGS: PA and lateral chest radiographs are correlated with chest CT performed the same day 10/26/2021. The heart is enlarged. The pulmonary vasculature is noncongested. The coronary artery stent is suspected. Atelectasis is noted at the lung bases. Right middle lobe atelectasis appears increased from today's CT scan. No pleural effusion or pneumothorax is seen. The skeletal structures are osteopenic. There are healed bilateral rib fractures. IMPRESSION: 1. Cardiomegaly without radiographic evidence of congestive failure. 2. Atelectasis is noted at the lung bases. Right middle lobe atelectasis appears increased from today's earlier CT scan. ACT 112: Negative or not required by law. Electronically signed by: Shayne Levin M.D. 10/26/2021 7:42 PM Foot X-Ray 10/26/21 15:29 RIGHT FOOT 3 VIEWS CLINICAL HISTORY: Right foot ulceration. FINDINGS: 3 views of the right foot are obtained. No prior studies are available for comparison at the time of dictation. The skeletal structures are osteopenic. No fracture is seen. There is no bony erosion or periostitis. Mild osteoarthritic change is seen at the first metatarsophalangeal joint. There is mild subluxation at the fourth proximal interphalangeal joint. Soft tissue edema overlies the heel. Ulceration is suggested dorsal to the calcaneus. No soft tissue gas is seen. An ankle monitor is in place. IMPRESSION: 1. No acute bony abnormality is identified. 2. Soft tissue edema overlies the heel and a cutaneous ulceration is suggested dorsal to the calcaneus. Electronically signed by: Shayne Levin M.D. 10/26/2021 7:58 PM Chest CTA 10/26/21 16:19 CT ANGIOGRAM OF THE CHEST CLINICAL HISTORY: Atypical chest pain. COMPARISON STUDY: No priors. TECHNIQUE: Following the IV administration of 121 cc of Optiray 320, CT angiogram of the chest was performed from the upper abdomen to the thoracic inlet utilizing the pulmonary embolus protocol. Images are reviewed in the axial, sagittal, and coronal planes. 3-D MIPS images are created and assessed. IV contrast was administered without complication. A dose lowering technique was utilized adhering to the principles of ALARA. The examination is degraded by motion artifact. CT DOSE: 423.06 mGy.cm FINDINGS: Thyroid: Imaged portions of the thyroid gland are normal in size and attenuation. Thoracic aorta: There is atherosclerotic calcification of the thoracic aorta. There is mild and minimal dilatation of the ascending thoracic aorta which measures up to 4.0 cm in diameter. The remainder of the thoracic aorta is normal in caliber, and the arch demonstrates standard 3-vessel anatomy. No dissection is seen. Pulmonary vasculature: The pulmonary trunk is normal in caliber. There are no filling defects identified in main, lobar, or proximal segmental pulmonary branches to suggest pulmonary embolus. Evaluation of the segmental and subsegmental vessels is significantly degraded by motion artifact, particularly in the lower lobes. Heart: The heart is enlarged and noting trace pericardial effusion. The coronary arteries are densely calcified. Lungs and pleural spaces: Evaluation of the lung parenchyma is compromised by motion artifact. Secretions are noted in the trachea. Dependent atelectasis is seen at the lung bases. There is no airspace consolidation typical for pneumonia or pleural effusion. Mediastinum: Esophageal wall appears diffusely thickened. There is no mediastinal lymphadenopathy. Leah: Clear. Axillae: There is no axillary lymphadenopathy. Upper abdomen: There is a small hiatal hernia. Partially visualized upper a bdominal viscera is otherwise within normal limits. Skeletal structures: The skeletal structures are osteopenic. Spondylotic changes noted in the spine. No lytic or blastic bony lesions are seen. There are chronic/healed bilateral rib fractures. IMPRESSION: 1. Motion compromised examination. 2. There is no evidence of central pulmonary embolus in the main, lobar, or proximal segmental pulmonary arteries. The segmental and subsegmental vessels are not well evaluated. 3. Cardiomegaly. 4. There is no airspace consolidation or pleural effusion. 5. Esophageal wall appears diffusely thickened. Correlate clinically for evidence of esophagitis. This could be further assessed with endoscopy if clinically warranted. 6. There is mild aneurysmal dilatation of the ascending thoracic aorta which measures up to 4.0 cm in diameter. 7. Additional findings as above. ACT 112: Negative or not required by law. Electronically signed by: Shayne Levin M.D. 10/26/2021 6:59 PM Duplex Scan Lower Extremity Artery 10/26/21 22:15 US arterial duplex LE RT CLINICAL HISTORY: RLE pain TECHNIQUE: Real-time grayscale and color and spectral Doppler ultrasound imaging of the bilateral lower extremity arteries was performed. Measurements calculated based on NASCET criteria. COMPARISON: None available at the time of this dictation. FINDINGS: RIGHT: Common femoral artery: Triphasic waveforms. Peak systolic velocity (PSV) 130 cm/s. Deep femoral artery: Triphasic waveforms. PSV 416 cm/s. Superficial femoral artery: Triphasic waveforms. PSV 592 cm/s proximally, monophasic distally with maximum velocity of 38 cm/s Popliteal artery: Monophasic waveforms. PSV 52 cm/s. Anterior tibial artery: Monophasic waveforms. PSV 40 cm/s. Posterior tibial artery: Monophasic waveforms. PSV 46 cm/s. Peroneal artery: Monophasic waveforms. PSV 46 cm/s. Dorsalis pedis: Monophasic waveforms. PSV 42 cm/s. Extensive atherosclerotic disease is seen. IMPRESSION: Elevated velocities are seen in the superficial femoral artery. Monophasic, parvus tardus waveforms are seen distally with diminished velocities. ACT 112: Negative or not required by law. Electronically signed by: Oscar Edwards M.D. 10/27/2021 8:[address] 10/26/21 22:15 CT foot RT wo con CLINICAL HISTORY: swelling ro abscess TECHNIQUE: Multidetector row helical CT of the right foot was performed without intravenous contrast. Coronal and sagittal reformations were obtained. Automated dose lowering techniques and/or adjustment according to patient size were utilized for this examination. CT DOSE: 171.65 mGy.cm Comparison: None available at the time of this dictation. FINDINGS: The osseous structures are without fracture or dislocation. The joint spaces are maintained. There is nonspecific edema in the plantar soft tissues. No evidence of drainable fluid collection is seen. IMPRESSION: Nonspecific edema without evidence of acute fracture or abscess. ACT 112: Negative or not required by law. Electronically signed by: Oscar Edwards M.D. 10/27/2021 7:33 AM Diagnostic Findings EKG on arrival reviewed: Sinus tachycardia at 107 bpm Otherwise normal ECG No previous ECGs available Telemetry reviewed: Sinus tachycardia ranging 110-120 bpm Occ PVC Echo report reviewed dated 10/27/2021: LV systolic function is normal. Ejection fraction 60 to 65%. Grade 1 diastolic dysfunction. Trace TR. Pulm no pulmonary hypertension. Medications Administered Current Inpatient Medications Acetaminophen (Acetaminophen 325 Mg Tab) 650 mg PO Q4H PRN PRN Reason: Pain or Fever Stop: 11/25/21 23:37 Amlodipine Besylate (Amlodipine Besylate 5 Mg Tab) 5 mg PO DAILY [facility] Stop: 11/26/21 08:59 Last Admin: 10/27/21 08:27 Dose: 5 mg Documented by: Aspirin (Aspirin 81 Mg Ectab) 81 mg PO DAILY [facility]I Stop: 11/26/21 08:59 Last Admin: 10/27/21 08:27 Dose: 81 mg Documented by: Atorvastatin Calcium (Atorvastatin 40 Mg Tab) 80 mg PO HS [facility]I Stop: 11/26/21 20:59 Baclofen (Baclofen 10 Mg Tab) 5 mg PO TID [facility] Stop: 11/26/21 08:59 Last Admin: 10/27/21 08:32 Dose: 5 mg Documented by: Cilostazol (Cilostazol 100 Mg Tab) 100 mg PO BID [facility]I Stop: 11/25/21 23:37 Last Admin: 10/27/21 08:27 Dose: 100 mg Documented by: Clopidogrel Bisulfate (Clopidogrel Bisulfate 75 Mg Tab) 75 mg PO DAILY [facility] Stop: 11/26/21 08:59 Last Admin: 10/27/21 08:27 Dose: 75 mg Documented by: Cyanocobalamin (Cyanocobalamin (B-12) 500 Mcg Tablet) 1,000 mcg PO DAILY [facility]STI Stop: 11/26/21 08:59 Last Admin: 10/27/21 08:27 Dose: 1,000 mcg Documented by: Dextrose (Dextrose 50% 50 Ml Syringe) 25 - 50 ml IV UD PRN; Protocol PRN Reason: Hypoglycemia Protocol Stop: 11/25/21 23:37 Doxycycline Hyclate (Doxycycline Hyclate 100 Mg Cap) 100 mg PO BID [facility]STI Stop: 11/02/21 23:37 Last Admin: 10/27/21 08:26 Dose: 100 mg Documented by: Duloxetine HCl (Duloxetine Hcl 30 Mg Cap) 30 mg PO DAILY [facility]I Stop: 11/26/21 08:59 Last Admin: 10/27/21 08:27 Dose: 30 mg Documented by: Enoxaparin Sodium (Enoxaparin Inj 40 Mg/0.4 Ml Syr) 40 mg SQ QAM [facility] Stop: 11/26/21 08:59 Last Admin: 10/27/21 08:27 Dose: 40 mg Documented by: Escitalopram Oxalate (Escitalopram Oxalate 10 Mg Tab) 10 mg PO DAILY [facility]STI Stop: 11/26/21 08:59 Last Admin: 10/27/21 08:27 Dose: 10 mg Documented by: Ferrous Sulfate (Ferrous Sulfate 325 Mg Tab) 325 mg PO TIDM [facility] Stop: 11/26/21 16:59 Folic Acid (Folic Acid 1 Mg Tab) 1 mg PO DAILY [facility]I Stop: 11/26/21 08:59 Last Admin: 10/27/21 08:27 Dose: 1 mg Documented by: Gabapentin (Gabapentin 800 Mg Tab) 800 mg PO TID [facility]STI Stop: 11/25/21 23:37 Last Admin: 10/27/21 08:26 Dose: 800 mg Documented by: Glucagon (Glucagon For Inj 1 Mg Vial) 1 mg SQ UD PRN; Protocol PRN Reason: Hypoglycemia Protocol Stop: 11/25/21 23:37 Glucose (Glucose 40% Gel 15 Gm Tube) 15 - 30 gm PO UD PRN; Protocol PRN Reason: Hypoglycemia Protocol Stop: 11/25/21 23:37 Glucose (Glucose 10 Tab/Tube) 4 - 8 tab PO UD PRN; Protocol PRN Reason: Hypoglycemia Treatment Stop: 11/25/21 23:37 Promethazine HCl 12.5 mg/ (Sodium Chloride) 50.5 mls @ 202 mls/hr IV Q6H PRN PRN Reason: Nausea And Vomiting Stop: 11/25/21 23:37 Lactated Ringer's (Lr) 1,000 mls @ 50 mls/hr IV .Q20H [facility] Stop: 11/26/21 00:00 Last Admin: 10/27/21 01:54 Dose: 50 mls/hr Documented by: Lorazepam 1 mg/ Syringe 1 mls @ 2 mls/min IV UD PRN; Protocol PRN Reason: EtOH Withdrawal AWSS Score 6,7 Stop: 11/26/21 00:05 Lorazepam 2 mg/ Syringe 2 mls @ 2 mls/min IV UD PRN; Protocol PRN Reason: EtOH Withdrawal AWSS Score 8,9 Stop: 11/26/21 00:05 Lorazepam 3 mg/ Syringe 3 mls @ 2 mls/min IV UD PRN; Protocol PRN Reason: etoh withdrawal AWSS > 9 Insulin Aspart (Insulin Aspart Per Unit) 0 units SC ACHS [facility] Stop: 11/25/21 23:37 Last Admin: 10/27/21 11:40 Dose: 6 units Documented by: Insulin Glargine (Lantus Per Unit Charge) 10 units SQ HS [facility] Stop: 11/26/21 20:59 Metoprolol Succinate (Metoprolol Succ 25mg Ext Rel Tab) 25 mg PO QAM [facility] Stop: 11/26/21 09:29 Last Admin: 10/27/21 10:06 Dose: 25 mg Documented by: Miscellaneous (Carbohydrates For Hypoglycemia ) 15 - 30 gm PO UD PRN PRN Reason: Hypoglycemia Protocol Stop: 11/25/21 23:37 Morphine Sulfate (Morphine Sulfate 4 Mg/Ml 1 Ml Carp\\Vial) 4 mg IV Q4H PRN PRN Reason: Pain Stop: 11/09/21 23:37 Multivitamins (Multivitamin Tab) 1 tab PO DAILY [facility] Stop: 11/26/21 08:59 Last Admin: 10/27/21 08:27 Dose: 1 tab Documented by: Oxycodone HCl (Oxycodone Hcl Ir 5 Mg Tab (Immediate Release)) 5 mg PO Q4H PRN PRN Reason: Pain Stop: 11/09/21 23:37 Prazosin HCl (Prazosin Hcl 1 Mg Cap) 3 mg PO [facility] Stop: 11/25/21 23:37 Last Admin: 10/27/21 00:38 Dose: 3 mg Documented by: Quetiapine Fumarate (Quetiapine Fumarate 25 Mg Tablet) 25 mg PO BID@0700,1700 [facility] Stop: 11/26/21 06:59 Last Admin: 10/27/21 08:26 Dose: 25 mg Documented by: Quetiapine Fumarate (Quetiapine Fumarate 200 Mg Tab) 200 mg PO [facility] Stop: 11/26/21 00:14 Last Admin: 10/27/21 00:39 Dose: 200 mg Documented by: Thiamine HCl (Thiamine Hcl 100 Mg Tab) 100 mg PO DAILY [facility] Stop: 11/26/21 08:59 Last Admin: 10/27/21 08:27 Dose: 100 mg Documented by: (1) Chest pain Chest pain type: unspecified Qualified Code(s): R07.9 - Chest pain, unspecified
--- NOTE | 2021-10-27 15:14 | Podiatry Consultation ---
Date of Consultation October 27, 2021 Assessment & Plan (1) Non-healing wound of right heel: Patient seen, evaluated, and treated. I examined the Patient for a right diabetic foot wound that has been resistant to healing. Patient's wound location is consistent with ground reactive forces while at rest. Off loading is a critical part of this Patient's management. Considerable time was spent with Patient discussing need for removal of ground reactive forces to retrocalcaneal right heel. Wound was cleansed with Betadine followed by normal saline. Dressing applied consisting of xeroform, 4x4, kerlix, JOELLEN. I did discuss continuation with xeroform dressing upon discharge. This can be made minimal so he may fit into regular shoe. Patient verbalizes understanding. Thank you for allowing me to participate in the care of this Patient. (2) Diabetes type 2, uncontrolled: Patient complains of symptoms consistent with Diabetic neuropathic pain. Dispensed Rx for Emla cream. Apply to feet as needed. (3) Peripheral vascular disease: History of Present Illness Attending Physician: Mick Sánchez MD History of Present Illness Patient is a type II diabetic 66-year-old male seen at [facility] bedside for a right foot diabetic foot ulcer. Patient has a Past Medical History of coronary artery disease, status post multiple stents, and Type II diabetes. He presented to the [facility] emergency department on 10/26/21 as a referral from [facility] (where he is staying currently for history of alcohol abuse) with a chief complaint of chest pain. Patient has complaints of "feels like elephants are stepping on my feet." He notes numbness, tingling, and burning consistent with diabetic neuropathy. Allergies Allergy/AdvReac Type Severity Reaction Status Date / Time hydroxyzine AdvReac Intermediate "DOESN'T Verified 10/26/21 18:51 WORK" PER PT. Home Medications Medication Instructions Recorded Confirmed Type amlodipine 5 mg tablet 5 mg PO DAILY 10/26/21 10/26/21 History aspirin 81 mg tablet,delayed 81 mg PO DAILY 10/26/21 10/26/21 History release atorvastatin 80 mg tablet 80 mg PO HS 10/26/21 10/26/21 History bacitracin 500 unit/gram topical 1 applic TOPICAL DAILY 10/26/21 10/26/21 History ointment baclofen 5 mg tablet 5 mg PO TID 10/26/21 10/26/21 History cilostazol 100 mg tablet 100 mg PO BID 10/26/21 10/26/21 History clopidogrel 75 mg tablet (Plavix) 75 mg PO DAILY 10/26/21 10/26/21 History cyanocobalamin (vitamin B-12) 1,000 mcg PO DAILY 10/26/21 10/26/21 History 1,000 mcg tablet (Vitamin B-12) doxycycline monohydrate 100 mg 100 mg PO BID 10/26/21 10/26/21 History tablet duloxetine 30 mg capsule,delayed 30 mg PO DAILY 10/26/21 10/26/21 History release sprinkle escitalopram oxalate 10 mg tablet 10 mg PO DAILY 10/26/21 10/26/21 History (Lexapro) folic acid 1 mg tablet 1 mg PO DAILY 10/26/21 10/26/21 History food supplemt, lactose-reduced 1 ea PO BID 10/26/21 10/26/21 History (Ensure) gabapentin 800 mg tablet 800 mg PO TID 10/26/21 10/26/21 History metformin 500 mg tablet 500 mg PO BID 10/26/21 10/26/21 History multivitamin 1 tab PO DAILY 10/26/21 10/26/21 History prazosin 1 mg capsule 1 mg PO HS 10/26/21 10/26/21 History prazosin 2 mg capsule 2 mg PO HS 10/26/21 10/26/21 History quetiapine 200 mg tablet (Seroquel) 200 mg PO HS 10/26/21 10/26/21 History quetiapine 25 mg tablet (Seroquel) 25 mg PO BID 10/26/21 10/26/21 History thiamine HCl (vitamin B1) 100 mg 100 mg PO DAILY 10/26/21 10/26/21 History tablet Patient History Social History Smoking Status: Current some day smoker Second Hand Exposure: No; Do You Dip or Chew Tobacco: No; Tobacco Cessation Education Requested by Patient: No Hx Alcohol Use: Yes Alcohol type: beer Hx Substance Use: No Preferred Language: Ethiopian Communication Ability: Effective 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 Beliefs That Will Affect Care: None marital status: Single Current Living Situation: Alone Current Living Situation Comment: [place] and is currently at [facility] Other Information That Helps Us Care for You: No Feels Safe at Home: Yes Safety Concerns: Feels Safe At This Time Assistive Devices: Cane Review of Systems Review of Systems: All systems reviewed & are unremarkable except as noted in HPI & below Physical Exam Constitutional: well developed and well nourished Eyes: PERRL, conjunctivae normal, anicteric sclerae ENMT: external ear and nose normal, oropharynx normal Neck: normal visual inspection Respiratory: normal respiratory effort, lungs clear to auscultation Cardiovascular: Extremities: normal capillary refill Bilateral pedal pulses non palpable. Feet are warm and dry. Skin: Right retrocalcaneal full thickness diabetic foot ulcer. Wound measures approximately 1 cm x 1 cm 0.2cm. There is no erythema. There are no signs of infection. There is minimal serous drainage. There is no malodor. Periwound shows hyperkeratotic tissue present. Neurologic: Alert, awake and oriented x3. Decreased epicritic sensation to bilateral feet. Psychiatric: Orientation: alert and oriented x 3 Results & Data ([facility]) Vital Signs (Past 12 Hours) Vital Signs Temp Pulse Pulse Resp BP Pulse Ox 10/27/21 14:56 110 H 10/27/21 08:23 117 H 133/65 10/27/21 08:09 113 H 10/27/21 07:05 36.5 C 112 H 18 95/64 L 93 10/27/21 03:37 36.8 C 118 H 20 127/[address] foot RT wo con CLINICAL HISTORY: swelling ro abscess TECHNIQUE: Multidetector row helical CT of the right foot was performed without intravenous contrast. Coronal and sagittal reformations were obtained. Automated dose lowering techniques and/or adjustment according to patient size were utilized for this examination. CT DOSE: 171.65 mGy.cm Comparison: None available at the time of this dictation. FINDINGS: The osseous structures are without fracture or dislocation. The joint spaces are maintained. There is nonspecific edema in the plantar soft tissues. No evidence of drainable fluid collection is seen. IMPRESSION: Nonspecific edema without evidence of acute fracture or abscess.
[2021-10-27] MEDS: FERROUS SULFATE 325 MG TAB PO SCH (17:26)
[2021-10-27] MEDS ORDERED: LANTUS PER UNIT CHARGE SQ SCH (21:00)
[2021-10-27] MEDS ORDERED: QUEtiapine FUMARATE 200 MG TAB PO SCH (21:00)
[2021-10-27] MEDS ORDERED: ATORVASTATIN 40 MG TAB PO SCH (21:00)
[2021-10-27] MEDS: LIDOCAINE/PRILOCAINE 2.5% EA CRM EXT SCH (22:06)
[2021-10-28 06:05] LABS: Hematocrit (blood only) 26.9 % (40.1-51.0); Hemoglobin 8.3 g/dl (14.0-18.0); Mean Corpuscular Hemoglobin 22.1 pg (25.0-34.0); Mean Corpuscular Hgb Conc 30.9 g/dL (32.0-36.0); Mean Corpuscular Volume 71.7 fL (80.0-100.0); Mean Platelet Volume 8.8 fL (9.4-12.4); Platelet Count 368 K/uL (130-400); RDW Standard Deviation 57.4 fL (36.4-46.3); Red Blood Count 3.75 M/uL (4.63-6.08); White Blood Count 8.01 K/ul (4.8-10.8)
[2021-10-28 06:28] LABS: BUN Creatinine Ratio 21.7 (10-20); Calcium 8.5 mg/dl (8.5-10.1); Creatinine Clr Calc Pharmacy 96.3 ml/min; Est GFR (African American) 115.5 ml/min; Est GFR (Non-African American) 99.6 ml/min; Magnesium 1.8 mg/dl (1.7-2.4); Potassium 3.8 mmol/L (3.5-5.1)
[2021-10-28 07:29] LABS: Anisocytosis Present; Basophils % (auto) 1.2 %; Eosinophils # (auto) 0.29 K/uL (0-0.50); Eosinophils % (auto) 3.6 %; Immature Granulocytes # (auto) 0.02 K/uL (0.00-0.02); Immature Granulocytes % (auto) 0.2 %; Lymphocytes # (auto) 2.12 K/uL (1.2-3.4); Lymphocytes % (auto) 26.5 %; Monocytes # (auto) 0.84 K/uL (0.24-0.82); Monocytes % (auto) 10.5 %; Neutrophils # (auto) 4.64 K/uL (1.4-6.5)
[2021-10-28] MEDS: INSULIN ASPART PER UNIT SC SCH ×2 (07:52→11:46)
[2021-10-28] MEDS: QUEtiapine FUMARATE 25 MG TABLET PO SCH (07:59)
[2021-10-28] MEDS: FERROUS SULFATE 325 MG TAB PO SCH (08:52)
[2021-10-28] MEDS ORDERED: IRON SUCROSE 200 MG in 0.9 % SODIUM CHLORIDE 100 ML IV SCH (09:00)
[2021-10-28] MEDS ORDERED: METOPROLOL SUCC 50MG EXT REL TAB PO SCH (09:05)
[2021-10-28] MEDS: DOXYCYCLINE HYCLATE 100 MG CAP PO SCH (09:22)
[2021-10-28] MEDS: DULoxetine HCL 30 MG CAP PO SCH (09:22)
[2021-10-28] MEDS: ASPIRIN 81 MG ECTAB PO SCH (09:22)
[2021-10-28] MEDS: cilostazoL 100 MG TAB PO SCH (09:22)
[2021-10-28] MEDS: amLODIPine BESYLATE 5 MG TAB PO SCH (09:22)
[2021-10-28] MEDS: THIAMINE HCL 100 MG TAB PO SCH (09:22)
[2021-10-28] MEDS: GABAPENTIN 800 MG TAB PO SCH (09:22)
[2021-10-28] MEDS: FOLIC ACID 1 MG TAB PO SCH (09:22)
[2021-10-28] MEDS: ESCITALOPRAM OXALATE 10 MG TAB PO SCH (09:22)
[2021-10-28] MEDS: CLOPIDOGREL BISULFATE 75 MG TAB PO SCH (09:23)
[2021-10-28] MEDS: MULTIVITAMIN TAB PO SCH (09:23)
[2021-10-28] MEDS: CYANOCOBALAMIN (B-12) 500 MCG TABLET PO SCH (09:23)
[2021-10-28] MEDS: LIDOCAINE/PRILOCAINE 2.5% EA CRM EXT SCH (09:23)
[2021-10-28] MEDS: BACLOFEN 10 MG TAB PO SCH (09:25)
[2021-10-28] MEDS: ENOXAPARIN INJ 40 MG/0.4 ML SYR SQ SCH (09:26)
[2021-10-28] MEDS: METOPROLOL SUCC 25MG EXT REL TAB PO SCH (09:48)
--- NOTE | 2021-10-29 15:10 | Discharge Summary ---
Date of Service October 29, 2021 Admission HPI Per Admitting Provider History obtained from patient and records. Medical history significant for CAD status post stent (recent stent placed 2014), PVD, hypertension, hyperlipidemia, DM2 on oral medications, mood disorder, chronic left heel wound on doxycycline Rx, ongoing tobacco/alcohol abuse. Patient is a resident of [place], [place] who [facility] rehab/detox 6 days ago. Last drink was 6 days ago. 2 months ago, patient noted a wound on his right heel. Patient started on Doxycycline course last week by family doctor before leaving [place]. X-ray recommended as per patient to make sure infection has not spread to the bone. Some improvement of right heel wound with doxycycline prescription. On and off left-sided chest discomfort going to the jaw and arm the last 3 years, lasting minutes to hours. Somewhat worsened on exertion. 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 Last 3 days, patient noted worsening of chest discomfort symptoms with some shortness of breath, diaphoresis. Patient compliant with home medications. Blood pressure readings different every time depending on what he eats as per patient. Patient denies headache, belly pain, black/bloody stools. Patient sent to the ER for evaluation of chest pain and right heel wound. Patient currently comfortable at the ER. Principal Diagnosis Poorly controlled Hypertension Alcohol Withdrawal Right chronic heal ulcer Iron Deficiency Anemia Discharge Exam Patient feels well. He is hopeful to remain sober and wants to return back to alcohol rehab On exam, he is pleasant, cooperative, reliable historian. Heart rate is normal, no murmurs/rubs/gallops. Breathing comfortably on room air, no wheezing/rhonchi/rales. No lower extremity edema. Discharge Data Allergies Allergy/AdvReac Type Severity Reaction Status Date / Time hydroxyzine AdvReac Intermediate "DOESN'T Verified 10/26/21 18:51 WORK" PER PT. Consultations 10/26/21 21:11 ED Decision to Admit Stat 10/26/21 23:38 Consult Cardiology Routine 10/27/21 01:57 Consult Health Information Management Routine 10/27/21 06:43 Consult Podiatry Routine 10/27/21 09:13 Consult Health Information Management Routine Ordered Studies 10/26/21 16:19 CT angio chest PE protocol Stat 10/26/21 22:15 CT foot RT wo con Urgent US arterial duplex LE RT Urgent Hospital Course (1) Chest pain: (2) Alcoholism: (3) CAD (coronary artery disease), [place] coronary artery: (4) Anemia: (5) Hypertension: (6) Hyperlipidemia: (7) Diabetes type 2, uncontrolled: (8) Non-healing wound of right heel: Right heel wound of 2 months duration Improving on recent doxycycline Rx, no sepsis for now hx PVD CT of the right foot did not show any evidence of deep wound and or osteomyelitis We will continue current medication Wound care consult Outpatient podiatry consult Plan Mr Jessica Foy is a 66 year old man who is from [place], history of peripheral vascular disease with a chronic right heal wound, non insulin diabetes, hypertension, CAD and alcohol dependency who is in this area to attend inpatient alcohol rehab at [facility]. He was sent to the hospital 10/26 for chest pain. Upon arrival, he was noted to be hypertensive and tachycardic with concern for alcohol withdrawal. He received ativan for his alcohol withdrawal and at the time of discharged has not required any BZD in 48 hours. For his chest pain, he had serial troponin which were negative and an Echo of the heart showed: Left ventricular systolic function is normal, EF 60 to 65%, grade 1 diastolic dysfunction, there is trace tricuspid regurgitation and Doppler findings do not suggest pulmonary hypertension. He was started on metoprolol for heart rate and blood pressure control. With blood pressure management, he had no further recurrence of chest pain and he was discharged back to [facility] alcohol rehab facility for further care. While here, he was seen by podiatry for his right chronic wound and provided wound care instructions. He had a CT of that foot that was negative for abscess or osteomyelitis. He was encouraged to follow up with his PCP back home for referral to see a local balloon dipper. Incidentally, he was noted to have iron deficiency anemia and received 1 dose IV iron here. He did not have evidence of active bleed and was encouraged to follow up with his PCP for referral to see GI for further evaluation. Total Time Total Time Spent Total Time Spent (In Minutes): 45 Discharge Plan Discharge Items Patient Disposition: Drug & Alcohol Rehab Reason For Visit: CP Discharge Diagnosis: Poorly controlled Hypertension Alcohol Withdrawal Right chronic heal ulcer Iron Deficiency Anemia Condition on Discharge: Good Activity: Resume your previous activity Weightbearing: Full weightbearing Non-emergency contact: Primary Care Provider and Surgeon Call non-emergency contact if: you have any medication questions Follow-up/Referrals: Darin White DPM, MS [Physician] - [facility] [Primary Care Provider] - Diet: Heart Healthy Addtl Attending Provider Instructions: Please follow up with your Primary Care doctor for management of your blood pressure and referral to see a balloon dipper for your right heal ulcer. You were found to have low iron and anemia. You should follow up with your PCP for referral to get an upper endoscopy and colonoscopy. Pending Studies at Discharge: No Stand-Alone Forms: My [facility] Skilled Items Patient informed of condition?: Yes DNR: No Discharge Level of Care: Other Communicable Disease: No Discharge Prognosis: Stable Lines: None Urinary Catheter: No Medications and DC Order Prescriptions: New metoprolol succinate 50 mg Tablet Extended Release 24 Hr 50 mg PO QAM 60 Days Qty: 60 0RF Continued multivitamin Tablet 1 tab PO DAILY quetiapine [Seroquel] 25 mg Tablet 25 mg PO BID Rx Instructions: TAKES AT 0700 & 1700 metformin 500 mg Tablet 500 mg PO BID cilostazol 100 mg Tablet 100 mg PO BID atorvastatin 80 mg Tablet 80 mg PO HS prazosin 1 mg Capsule 1 mg PO HS Rx Instructions: NEW DOSE STARTING 10/26/21. TOTAL DOSE 3 MG--TAKES WTIH 2 MG CAP. quetiapine [Seroquel] 200 mg Tablet 200 mg PO HS cyanocobalamin (vitamin B-12) [Vitamin B-12] 1,000 mcg Tablet 1,000 mcg PO DAILY thiamine HCl (vitamin B1) 100 mg Tablet 100 mg PO DAILY bacitracin 500 unit/gram Ointment 1 applic TOPICAL DAILY Rx Instructions: TO RIGHT HEEL, COVER WITH GUAZE DRESSING. clopidogrel [Plavix] 75 mg Tablet 75 mg PO DAILY amlodipine 5 mg Tablet 5 mg PO DAILY aspirin 81 mg Tablet,Delayed Release (Dr/Ec) 81 mg PO DAILY doxycycline monohydrate 100 mg Tablet 100 mg PO BID Rx Instructions: STARTED 10/22/21, ENDS 10/28/21 AM DOSE. gabapentin 800 mg Tablet 800 mg PO TID folic acid 1 mg Tablet 1 mg PO DAILY prazosin 2 mg Capsule 2 mg PO HS Rx Instructions: TOTAL DOSE 3 MG--TAKES WITH 1 MG CAP. Ensure Liquid 1 ea PO BID escitalopram oxalate [Lexapro] 10 mg Tablet 10 mg PO DAILY baclofen 5 mg Tablet 5 mg PO TID Rx Instructions: JUST ORDERED 10/26/21 duloxetine 30 mg Capsule, Delayed Rel Sprinkle 30 mg PO DAILY Sue/Other Patient Handouts: High Blood Sugar (Hyperglycemia), Hypoglycemia (Low Blood Sugar), Managing Type 2 Diabetes, Diabetes: Meal Planning, Special Foot Care for Diabetes Admission Data Admit Date/Time: 10/26/21 22:28 Attending Provider: Giovanni Wright Admit Provider: Augustin Gonzalez Primary Care Provider: [facility] Other Providers: Augustin Gonzalez ; Juan Vasquez ; Hugo Sheldon ; Tyrone Becker ; Alan Sears ; Harman Burgess ; Collin Scott ; Brianna Boo ; Cindy Conner ; Katty Cisse ; Jaiden Davila ; Darin White ; Mick Sánchez Other Interventions: Discharge Summary Assessment (RN) Last Done: 10/28/21 13:10
== END 2021-10-28 13:50 | disposition alcohol treatment (31) ==
LOC: 2E 15:17 → ED 15:17 → SUATTDRO 22:28 → 2E 22:51
DX: E11.9 Type 2 diabetes mellitus without complications; Z79.84 Long term (current) use of oral hypoglycemic drugs; F17.290 Nicotine dependence, other tobacco product, uncomplicated; E78.5 Hyperlipidemia, unspecified; R07.9 Chest pain, unspecified; D64.9 Anemia, unspecified; L97.519 Non-pressure chronic ulcer of other part of right foot with unspecified severity; I10 Essential (primary) hypertension; Z79.899 Other long term (current) drug therapy